=== PATIENT | female | born 1940 | race Caucasian/White ===

== ENCOUNTER 2020-09-03 22:51 | Inpatient (IN) | payer OTHER ==
[2020-09-03 23:53] LABS: Absolute Lymphocytes (CBC) 1.1 K/uL (0.7-4.9); Basophils % 0.4 % (0-1.3); Hematocrit 45.2 % (36.0-45.0); MPV 8.7 fL (7.6-11.3); RBC Red Blood Cell Count 5.17 M/uL (3.86-4.86)
[2020-09-03 23:56] LABS: Protime INR 1.09
[2020-09-04] MEDS ORDERED: NA CHLORIDE 0.9% 1,000 ML ONE (00:14)
[2020-09-04 00:27] LABS: ALT/SGPT 41 U/L (12-78); AST/SGOT 74 U/L (15-37); Albumin 3.3 g/dL (3.4-5.0); Alkaline Phosphatase 87 U/L (45-117); Amylase 39 U/L (25-115); BUN Blood Urea Nitrogen 12 mg/dL (7-18); Bicarbonate 26 mmol/L (21-32); Bilirubin Direct 0.5 mg/dL (0-0.2); Bilirubin Total 1.6 mg/dL (0.2-1.0); CKMB Creatine Kinase MB < 1.0 ng/mL (0.3-3.6); Creatine Phosphokinase 43 U/L (26-192); Digoxin Level < 0.10 ng/mL (0.80-2.00); Glucose Level 209 mg/dL (74-106); Lipase 141 U/L (73-393); Potassium 3.7 mmol/L (3.5-5.1); Sodium Level 137 mmol/L (136-145); Troponin (Emerg Dept Use Only) < 0.02 ng/mL (0.0-0.045)
[2020-09-04 00:54] LABS: Blood Morphology Comment NOT SEEN (NOT SEEN); Platelet Estimate ADEQ
--- NOTE | 2020-09-04 01:49 | EDPHYS ---
Physician Documentation [facility] Name: Kay Jin Age: 80 yrs Sex: Female : 1940 Arrival Date: 09/03/2020 Time: 22:56 Bed 14 Private MD: ED Physician Truman Kowalski HPI: 09/03 23:56 This 80 yrs old Female presents to ER via EMS with complaints of confused . ma2 23:56 called EMS stating his , the patient, is non verbal and seems confused. ma2 when ems arrived patietnt was having afib w rvr hr was 170 bpm, w normal bp, yet awake alert, she was given diltiasm and rate went down to 110. remained normotensive... in er patient is awake and alert, yet confused. she states "she does not know" what is wrong. has no complaint at this time . 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 - Social history:: Smoking status: Patient denies any tobacco usage or history of. Patient/guardian denies using alcohol, street drugs, IV drugs, tobacco products, Patient/guardian denies using The patient lives with family. - Family history:: not pertinent. ROS: 23:56 Constitutional: Negative for fever, chills, and weight loss. ma2 23:56 All other systems are negative. 23:56 Unable to obtain ROS due to altered mental status. ma2 Exam: 23:56 Constitutional: This is a well developed, well nourished patient who is awake, alert, ma2 and in no acute distress. Head/Face: Normocephalic, atraumatic. Eyes: Pupils equal round and reactive to light, extra-ocular motions intact. Lids and lashes normal. Conjunctiva and sclera are non-icteric and not injected. Cornea within normal limits. Periorbital areas with no swelling, redness, or edema. ENT: Nares patent. No nasal discharge, no septal abnormalities noted. Tympanic membranes are normal and external auditory canals are clear. Oropharynx with no redness, swelling, or masses, exudates, or evidence of obstruction, uvula midline. Mucous membranes moist. Neck: Trachea midline, no thyromegaly or masses palpated, and no cervical lymphadenopathy. Supple, full range of motion without nuchal rigidity, or vertebral point tenderness. No Meningismus. Chest/axilla: Normal chest wall appearance and motion. Nontender with no deformity. No lesions are appreciated. Respiratory: Lungs have equal breath sounds bilaterally, clear to auscultation and percussion. No rales, rhonchi or wheezes noted. No increased work of breathing, no retractions or nasal flaring. Abdomen/GI: Soft, non-tender, with normal bowel sounds. No distension or tympany. No guarding or rebound. No evidence of tenderness throughout. 23:56 MS/ Extremity: Pulses equal, no cyanosis. Neurovascular intact. Full, normal range of motion. 23:56 Cardiovascular: Rate: tachycardic, Rhythm: irregularly irregular, Pulses: no pulse deficits are appreciated, Edema: is not appreciated. 23:56 Neuro: Orientation: to person, place, situation, Not oriented to time, Mentation: appropriate for stated age, Cranial nerves: CN I not tested, extraocular movements are intact, Facial palsy and sensory deficits are absent. Speech is clear and appropriate. Motor: moves all fours, Sensation: Gait: not tested. Vital Signs: 23:00 BP 165 / 101; Pulse 114; Resp 16; Pulse Ox 94% ; sf 23:01 BP 176 / 120 (auto/); Pulse 128 MON; Resp 16 S; Temp 98.8(O); Pulse Ox 90% on R/A; sf 23:10 Pulse Ox 94% on R/A; sf 23:21 BP 166 / 94; sf 23:42 BP 185 / 98; Pulse 118; Resp 16; Pulse Ox 93% on R/A; sf 11 00:00 BP 177 / 111; Pulse 121; Resp 16; Pulse Ox 93% ; sf 00:30 BP 178 / 111; Pulse 121; Resp 16; Pulse Ox 95% ; sf 01:00 BP 168 / 127; Pulse 130; Resp 16; Pulse Ox 96% ; sf 01:30 BP 187 / 173; Pulse 121; Resp 16; Pulse Ox 95% ; sf 01:56 BP 166 / 113; Pulse 127; Resp 16; Pulse Ox 95% ; sf 02:00 BP 167 / 100; Pulse 109; Pulse Ox 94% ; sf 02:05 BP 169 / 97; Pulse 104; Pulse Ox 95% ; sf 02:10 BP 158 / 87; Pulse 102; Resp 14; Pulse Ox 93% ; Weight 95.25 kg (R); Height 5 ft. 7 in. sf (170.18 cm) (R); 02:15 BP 148 / 97; Pulse 99; Resp 16; Pulse Ox 94% ; sf 02:20 BP 148 / 95; Pulse 98; Resp 16; Pulse Ox 94% ; sf 02:30 BP 157 / 84; Pulse 99; Resp 16; Pulse Ox 95% ; sf 03:00 BP 172 / 105; Pulse 101; Resp 16; Pulse Ox 93% ; sf 02:10 Body Mass Index 32.89 (95.25 kg, 170.18 cm) NIH Stroke Scale Scores: 02:32 NIHSS Score: 2 [facility] MDM: 09/03 22:59 Patient medically screened. [facility] 23:56 Differential Diagnosis altered mental status, sepsis, likely afib with rvr and delirium [facility] . 09/04 01:47 Data reviewed: vital signs, nurses notes. Counseling: I had a detailed discussion with [facility] the patient and/or guardian regarding: the historical points, exam findings, and any diagnostic results supporting the discharge/admit diagnosis, the presence of at least one elevated blood pressure reading (>120/80) during this emergency department visit, the need for outpatient follow up. Response to treatment: the patient's symptoms have markedly improved after treatment. 09/03 23:02 Order name: C-Reactive Protein [facility] 09/03 23:02 Order name: Urine Culture [facility] 09/03 23:02 Order name: Amylase, Serum [facility] 09/03 23:02 Order name: Basic Metabolic Panel [facility] 09/03 23:02 Order name: Blood Culture Adult (2) [facility] 09/03 23:02 Order name: CBC with Diff; Complete Time: 00:55 [facility] 09/03 23:02 Order name: Ckmb; Complete Time: 00:54 [facility] 09/03 23:02 Order name: CPK; Complete Time: 00:54 [facility] 09/03 23:02 Order name: Lactate; Complete Time: 00:54 ar2 09/03 23:02 Order name: LFT's; Complete Time: 00:54 [facility] 09/03 23:02 Order name: Lipase; Complete Time: 00:54 ar2 09/03 23:02 Order name: Procalcitonin; Complete Time: 00:54 [facility] 09/03 23:02 Order name: Protime (+inr); Complete Time: 00:54 [facility] 09/03 23:02 Order name: Ptt, Activated; Complete Time: 00:54 [facility] 09/03 23:02 Order name: Troponin (emerg Dept Use Only); Complete Time: 00:54 [facility] 09/03 23:02 Order name: Urine Microscopic Only [facility] 09/03 23:02 Order name: C-Reactive Protein; Complete Time: 00:54 [facility] 09/03 23:02 Order name: Urine Culture [facility] 09/03 23:02 Order name: Amylase; Complete Time: 00:54 [facility] 09/03 23:02 Order name: Basic Metabolic Panel; Complete Time: 00:54 [facility] 09/03 23:02 Order name: Digoxin; Complete Time: 00:54 [facility] 09/03 23:58 Order name: Manual Differential; Complete Time: 00:55 [facility] 09/04 01:16 Order name: Urine Dipstick--Ancillary (enter results) 3 09/04 02:16 Order name: COVID-19 : Document "Date of Symptom Onset" if Symptomatic. 09/04 04:08 Order name: SARS-COV-2 RT PCR; Complete Time: 04:24 [facility] 09/04 06:08 Order name: Troponin I [facility] 09/04 06:10 Order name: T4 Free [facility] 09/04 06:10 Order name: Thyroid Stimulating Hormone [facility] 09/04 06:13 Order name: Hemoglobin A1c [facility] 09/04 10:02 Order name: Troponin I [facility] 09/03 23:02 Order name: Chest Single View XRAY [facility] 09/03 23:02 Order name: Cardiac monitoring; Complete Time: 23:18 [facility] 09/03 23:02 Order name: EKG - Nurse/Tech; Complete Time: 23:18 [facility] 09/03 23:02 Order name: IV Saline Lock - Large Bore; Complete Time: 23:18 [facility] 09/03 23:02 Order name: Labs collected and sent; Complete Time: 23:46 ar2 09/03 23:02 Order name: O2 Per Protocol; Complete Time: 23:18 ar2 09/03 23:02 Order name: O2 Sat Monitoring; Complete Time: 23:17 [facility] 09/03 23:02 Order name: Urine Dipstick-Ancillary (obtain specimen); Complete Time: 01:06 [facility] 09/03 23:02 Order name: CT Head Brain wo Cont ar2 09/04 00:03 Order name: Swallow Screen; Complete Time: 01:06 ar2 09/04 02:51 Order name: CONS Physician Consult [facility]IL 09/04 04:25 Order name: CT Neck Angio ar2 09/04 04:25 Order name: CT Head Angio ar2 Administered Medications: 00:00 Drug: NS 0.9% 1000 ml Route: IV; Rate: 125 ml/hr; Site: left forearm; sf 03:45 Follow up: IV Status: Infusion continued upon admission sf 01:41 Not Given (Physician Discretion): Diltiazem 30 mg PO once em 01:55 Drug: Rocephin 1 grams Route: IV; Rate: calculated rate; Site: right antecubital; sf 02:00 Follow up: IV Status: Completed infusion; IV Intake: 10ml sf 03:27 Follow up: Response: No adverse reaction sf 02:00 Drug: Cefepime 1 grams Route: IVPB; Rate: 200 ml/hr; Infused Over: 30 mins; Site: right sf antecubital; 02:30 Follow up: IV Status: Completed infusion sf 03:26 Follow up: Response: No adverse reaction sf 02:00 Drug: Metoprolol 5 mg Route: IVP; Site: left forearm; sf 02:05 Drug: Metoprolol 5 mg Route: IVP; Site: left forearm; sf 02:10 Drug: Metoprolol 5 mg Route: IVP; Site: left forearm; sf 03:27 Follow up: Response: No adverse reaction sf 02:56 Not Given (Physician Discretion): Diltiazem 5 mg/hr IV at calculated rate continuous; jb4 (standard dilution 125 mg diltiazem mixed in 100mL NS; final concentration 1mg/mL) 03:03 Drug: Metoprolol 50 mg Route: PO; jb4 03:27 Follow up: Response: No adverse reaction sf Disposition: 09/04/20 01:49 Hospitalization ordered by Truman Howard for Inpatient Admission. Preliminary diagnosis are Atrial fibrillation and flutter, Tachycardia, unspecified, Altered mental status, unspecified. - Bed requested for Telemetry/MedSurg (Inpatient). - Status is Inpatient Admission. jd3 - Condition is Stable. - Problem is new. - Symptoms are unchanged. NIH Stroke Scale - NIH Stroke Score Date: 09/04/2020 Time: 02:32 Total Score = 2 1a. Level of Consciousness (LOC) - 0(Alert) 1b. Level of Consciousness (LOC) (Year \\T\\ Age) - 1(One) 1c. LOC Commands (Open \\T\\ Closes Eyes/Excavator Operator) - 0(Both) 2. Best Gaze (Lateral Gaze Paresis) - 0(Normal) 3. Visual Field Loss - 0(No visual loss) 4. Facial Palsy - 0(Normal) 5a. Left Arm: Motor (10-second hold) - 0(No drift) 5b. Right Arm: Motor (10-second hold) - 0(No drift) 6a. Left Leg: Motor (5-second hold - always test supine) - 0(No drift) 6b. Right Leg: Motor (5-second hold - always test supine) - 0(No drift) 7. Limb Ataxia (finger/nose \\T\\ heel/gerard - test with eyes open) - 0(Absent) 8. Sensory Loss (pinprick arms/legs/face) - 0(Normal) 9. Best Language: Aphasia (description/naming/reading) - 0(No aphasia) 10. Dysarthria (speech clarity - read or repeat words) - 0(Normal) 11. Extinction and Inattention (visual/tactile/auditory/spatial/personal) - 1(Present) Initials: ma2 Signatures: Dispatcher [employer] Catrachita Diaz RN RN dw Roszak, Josh, PA PA jr8 Dory Peralta RN RN tl1 Anson Mitchell RN RN jb4 Kedar Ch RN RN jd3 Alzahri, Mohammad, MD MD ma2 Levi Ruiz RN RN sf Munoz, Edgar RN em Corrections: (The following items were deleted from the chart) 01:13 09/03 23:02 Accucheck ordered. ma2 sf 09/04 04:09 01:49 Hospitalization Ordered by Truman Howard MD for Inpatient Admission. tl1 Preliminary diagnosis is Atrial fibrillation and flutter; Tachycardia, unspecified; Altered mental status, unspecified. Bed requested for Telemetry/MedSurg (Inpatient). Status is Inpatient Admission. Condition is Stable. Problem is new. Symptoms are unchanged. ma2 09:56 04:09 09/04/2020 01:49 Hospitalization Ordered by Truman Howard MD for dw Inpatient Admission. Preliminary diagnosis is Atrial fibrillation and flutter; Tachycardia, unspecified; Altered mental status, unspecified. Bed requested for [facility] ER HOLD. Status is Inpatient Admission. Condition is Stable. Problem is new. Symptoms are unchanged. tl1 11:02 09:56 09/04/2020 01:49 Hospitalization Ordered by Truman Howard MD for jd3 Inpatient Admission. Preliminary diagnosis is Atrial fibrillation and flutter; Tachycardia, unspecified; Altered mental status, unspecified. Bed requested for Telemetry/MedSurg (Inpatient). Status is Inpatient Admission. Condition is Stable. Problem is new. Symptoms are unchanged. dw
--- NOTE | 2020-09-04 01:49 | ER ---
Nurse's Notes [facility] Name: Kay Jin Age: 80 yrs Sex: Female : 1940 Arrival Date: 09/03/2020 Time: 22:56 Bed 14 Private MD: Diagnosis: Atrial fibrillation and flutter;Tachycardia, unspecified;Altered mental status, unspecified Presentation: 09/03 23:01 Chief complaint: EMS states: EMS reports called EMS for bilateral leg weakness, sf concerned due to HX TIAs, showed A-Fib RVR on monitor with rate in the 160s, They gave 4mg Cardizem IVP, rate slowed to 120s. Coronavirus screen: Client denies travel out of the [place] in the last 14 days. At this time, the client does not indicate any symptoms associated with coronavirus-19. Ebola Screen: Patient negative for fever greater than or equal to 101.5 degrees Fahrenheit, and additional compatible Ebola Virus Disease symptoms Patient denies exposure to infectious person. Patient denies travel to an Ebola-affected area in the 21 days before illness onset. No symptoms or risks identified at this time. Initial Sepsis Screen: Does the patient meet any 2 criteria? Altered Mental Status. HR > 90 bpm. Yes Does the patient have a suspected source of infection? No. Patient's initial sepsis screen is negative. Risk Assessment: Do you want to hurt yourself or someone else? Patient reports no desire to harm self or others. Onset of symptoms was September 03, 2020. 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 - Social history:: Smoking status: Patient denies any tobacco usage or history of. Patient/guardian denies using alcohol, street drugs, IV drugs, tobacco products, Patient/guardian denies using The patient lives with family. - Family history:: not pertinent. Screenin:00 Abuse screen: Denies threats or abuse. Denies injuries from another. Nutritional sf screening: No deficits noted. Tuberculosis screening: No symptoms or risk factors identified. Never had TB. Possible symptoms: None Risk factors: None. Fall Risk None identified. No fall in past 12 months (0 pts). Secondary diagnosis (15 points) TIA, IV access (20 points). Ambulatory Aid- None/Bed Rest/Nurse Assist (0 pts). Gait- Weak (10 pts.). Mental Status- Overestimates/Forgets Limitations (15 pts.). Total Araujo Fall Scale indicates High Risk Score (45 or more points). Fall prevention measures have been instituted. Side Rails Up X 2 Placed Close to Nursing Station Frequent Obs/Assessments Occuring. 09/04 00:50 Patient has been NPO before screening. The patient is alert, able to follow commands. em The patient does not exhibit slurred or garbled speech The patient is not exhibiting difficulty speaking. The patient does not exhibit difficulty understanding words. The patient is able to swallow own secretions with no drooling or need for suction. Patient tolerated one teaspoon of water. No drooling, immediate coughing, gurgling, or clearing of the throat was noted. The patient tolerated 90mL of water. No drooling, immediate coughing, gurgling, or clearing of the throat was noted. The patient passed the bedside swallow screening. Oral medications may be given as ordered. Contact Physician for further diet orders. Provider notified of bedside swallow screening results: Truman Kowalski MD. Assessment: 09/03 23:00 General: Appears in no apparent distress. comfortable, well groomed, well developed, sf Behavior is calm, cooperative. Pain: Denies pain. Neuro: Level of Consciousness is awake, alert, obeys commands, confused, Oriented to person, Moves all extremities. Speech with expressive aphasia noted, Facial symmetry appears normal, Pupils are PERRLA. Cardiovascular: Denies chest pain, shortness of breath, Patient's skin is warm and dry. Rhythm is atrial fibrillation with rapid ventricular response With PVC's. Respiratory: No deficits noted. Airway is patent Respiratory effort is even, unlabored, Respiratory pattern is regular, symmetrical. 23:10 Reassessment: spoke with Sunil () POC [phone], states his was having em some generalized weakness and difficulty with her speech around 4PM, noticed it was not getting any better and called EMS, was concerned that she was having another TIA. 09/04 01:21 Reassessment: Patient appears in no apparent distress at this time. No changes from sf previously documented assessment. Patient and/or family updated on plan of care and expected duration. Pain level reassessed. 03:30 Reassessment: Patient appears in no apparent distress at this time. Patient and/or sf family updated on plan of care and expected duration. Pain level reassessed. HR slower, still having confusion, denies wants/needs. 10:43 Reassessment: Gave report to MARTÍN Epstein. Information from the SBAR was given, all rb3 questions asked and answered. Vital Signs: 09/03 23:00 BP 165 / 101; Pulse 114; Resp 16; Pulse Ox 94% ; sf 23:01 BP 176 / 120 (auto/); Pulse 128 MON; Resp 16 S; Temp 98.8(O); Pulse Ox 90% on R/A; sf 23:10 Pulse Ox 94% on R/A; sf 23:21 BP 166 / 94; sf 23:42 BP 185 / 98; Pulse 118; Resp 16; Pulse Ox 93% on R/A; sf 09/04 00:00 BP 177 / 111; Pulse 121; Resp 16; Pulse Ox 93% ; sf 00:30 BP 178 / 111; Pulse 121; Resp 16; Pulse Ox 95% ; sf 01:00 BP 168 / 127; Pulse 130; Resp 16; Pulse Ox 96% ; sf 01:30 BP 187 / 173; Pulse 121; Resp 16; Pulse Ox 95% ; sf 01:56 BP 166 / 113; Pulse 127; Resp 16; Pulse Ox 95% ; sf 02:00 BP 167 / 100; Pulse 109; Pulse Ox 94% ; sf 02:05 BP 169 / 97; Pulse 104; Pulse Ox 95% ; sf 02:10 BP 158 / 87; Pulse 102; Resp 14; Pulse Ox 93% ; Weight 95.25 kg (R); Height 5 ft. 7 in. sf (170.18 cm) (R); 02:15 BP 148 / 97; Pulse 99; Resp 16; Pulse Ox 94% ; sf 02:20 BP 148 / 95; Pulse 98; Resp 16; Pulse Ox 94% ; sf 02:30 BP 157 / 84; Pulse 99; Resp 16; Pulse Ox 95% ; sf 03:00 BP 172 / 105; Pulse 101; Resp 16; Pulse Ox 93% ; sf 02:10 Body Mass Index 32.89 (95.25 kg, 170.18 cm) sf Vitals: 01:00 Cardiac Rhythm Assessment Atrial fibrillation W/rapid ventricular response W/PVC's. sf 02:15 Cardiac Rhythm Assessment Atrial fibrillation. NIH Stroke Scale Scores: 02:32 NIHSS Score: 2 [facility] ED Course: 09/03 22:52 EKG done, by ED staff, reviewed by Truman Kowalski MD. sf 22:56 Patient arrived in ED. em 22:59 Truman Kowalski MD is Attending Physician. [facility] 23:01 Levi Ruiz, RN is Primary Nurse. sf 23:04 Triage completed. sf 23:05 Fall risk band placed. Placed in gown. Bed in low position. Call light in reach. Side sf rails up X2. equipment monitor phototypesetting on. Pulse ox on. NIBP on. Door closed. Noise minimized. Lights dimmed. Warm blanket given. Verbal reassurance given. 23:08 Arm band placed on left wrist. EKG completed in triage. Results shown to MD. sf 23:10 Maintain EMS IV. Dressing intact. Good blood return noted. Site clean \T\ dry. Gauge \T\ sf site: 22GA right AC. 23:17 CT Head Brain wo Cont Sent. sf 23:30 Initial lab(s) drawn, by mt, sent to lab. First set of blood cultures drawn by me. sf Inserted saline lock: 20 gauge in left forearm, using aseptic technique. Blood collected. 23:33 CT Head Brain wo Cont In Process Unspecified. EDMS 23:48 X-ray(s) taken. sf 23:56 Chest Single View XRAY Sent. sf 02 00:49 Chest Single View XRAY In Process Unspecified. EDMS 01:00 Straight cath inserted, using sterile technique, 16 Fr. Specimen obtained. Returned em clear yellow urine. Patient tolerated well. 01:12 C-Reactive Protein Sent. sf 01:12 Urine Culture Sent. sf 01:12 Amylase, Serum Sent. sf 01:12 Basic Metabolic Panel Sent. sf 01:48 Truman Howard MD is Hospitalizing Provider. ma2 03:44 Report given to Lilia Douglas RN. sf 03:45 No provider procedures requiring assistance completed. Patient admitted, IV remains in sf place. Administered Medications: 00:00 Drug: NS 0.9% 1000 ml Route: IV; Rate: 125 ml/hr; Site: left forearm; sf 03:45 Follow up: IV Status: Infusion continued upon admission sf 01:41 Not Given (Physician Discretion): Diltiazem 30 mg PO once em 01:55 Drug: Rocephin 1 grams Route: IV; Rate: calculated rate; Site: right antecubital; sf 02:00 Follow up: IV Status: Completed infusion; IV Intake: 10ml sf 03:27 Follow up: Response: No adverse reaction sf 02:00 Drug: Cefepime 1 grams Route: IVPB; Rate: 200 ml/hr; Infused Over: 30 mins; Site: right sf antecubital; 02:30 Follow up: IV Status: Completed infusion sf 03:26 Follow up: Response: No adverse reaction sf 02:00 Drug: Metoprolol 5 mg Route: IVP; Site: left forearm; sf 02:05 Drug: Metoprolol 5 mg Route: IVP; Site: left forearm; sf 02:10 Drug: Metoprolol 5 mg Route: IVP; Site: left forearm; sf 03:27 Follow up: Response: No adverse reaction sf 02:56 Not Given (Physician Discretion): Diltiazem 5 mg/hr IV at calculated rate continuous; jb4 (standard dilution 125 mg diltiazem mixed in 100mL NS; final concentration 1mg/mL) 03:03 Drug: Metoprolol 50 mg Route: PO; jb4 03:27 Follow up: Response: No adverse reaction sf Intake: 02:00 IV: 10ml; Total: 10ml. Outcome: 01:49 Decision to Hospitalize by Provider. ma2 03:44 Admitted to ER Hold. Please see [facility] for further documentation. sf 03:44 Condition: stable 11:02 Patient left the ED. jd3 NIH Stroke Scale - NIH Stroke Score Date: 09/04/2020 Time: 02:32 Total Score = 2 1a. Level of Consciousness (LOC) - 0(Alert) 1b. Level of Consciousness (LOC) (Year \T\ Age) - 1(One) 1c. LOC Commands (Open \T\ Closes Eyes/Chronic Specialist) - 0(Both) 2. Best Gaze (Lateral Gaze Paresis) - 0(Normal) 3. Visual Field Loss - 0(No visual loss) 4. Facial Palsy - 0(Normal) 5a. Left Arm: Motor (10-second hold) - 0(No drift) 5b. Right Arm: Motor (10-second hold) - 0(No drift) 6a. Left Leg: Motor (5-second hold - always test supine) - 0(No drift) 6b. Right Leg: Motor (5-second hold - always test supine) - 0(No drift) 7. Limb Ataxia (finger/nose \T\ heel/gerard - test with eyes open) - 0(Absent) 8. Sensory Loss (pinprick arms/legs/face) - 0(Normal) 9. Best Language: Aphasia (description/naming/reading) - 0(No aphasia) 10. Dysarthria (speech clarity - read or repeat words) - 0(Normal) 11. Extinction and Inattention (visual/tactile/auditory/spatial/personal) - 1(Present) Initials: ma2 Signatures: Dispatcher [employer] EDKorey Narayan RN RN Anson Estrada RN RN jb4 Kedar Ch RN RN Truman Martinez MD MD ma2 Teresa Reyes, RN RN rb3 Levi Ruiz RN RN sf Corrections: (The following items were deleted from the chart) 09/03 23:55 23:00 Cardiovascular: Denies chest pain, shortness of breath, Patient's skin is sf warm and dry. Rhythm is atrial fibrillation with rapid ventricular response sf
[2020-09-04] MEDS ORDERED: dilTIAZem HCL 25 MG/5 ML VIAL IV ONE ×3 (01:51→02:06)
[2020-09-04] MEDS ORDERED: NA CHLORIDE 0.9% 100 ML ONE (01:51)
[2020-09-04] MEDS ORDERED: CEFEPIME/SWI 1gm 10 ML ONE (01:52)
[2020-09-04] MEDS ORDERED: CEFTRIAXONE/SWI 1gm 1 GM/10 ML SYR ONE (01:52)
[2020-09-04] MEDS ORDERED: METOPROLOL TARTRATE 5 MG/5 ML INJ IV ONE ×2 (02:08→02:23)
[2020-09-04] MEDS ORDERED: METOPROLOL TAR 50 MG TAB ONE (03:15)
--- NOTE | 2020-09-04 03:34 | P.HP ---
Certification for Inpatient Patient admitted to: Inpatient With expected LOS: >2 Midnights Patient will require the following post-hospital care: None Practitioner: I am a practitioner with admitting privileges, knowledge of patient current condition, hospital course, and medical plan of care. Services: Services provided to patient in accordance with Admission requirements found in Title 42 Section 412.3 of the Code of Federal Regulations <Jona Ross - Last Filed: 09/04/20 03:29> Patient History Date of Service: 09/04/20 Reason for admission: Atrial Fib with RVR, AMS History of Present Illness: This is a 80-year-old female that was brought to the emergency room tonight after EMS was called out by has been for confusion that has started around 4:00 p.m. tonight and has continued on. EMS stated once it up to the monitor they noticed that she was in atrial fibrillation with rapid ventricular rate. Patient was given Cardizem en route to the hospital with only mild rate control. Patient was still in the 130 still 140s upon arrival. Patient was worked up in the emergency room for altered mental status and atrial fibrillation. Patient was given rounds of Lopressor with excellent rate control at this time. Patient had an NIH of 1. Patient had a CT scan done without acute findings in the emergency room. Patient did have mild elevation of white cell count of 15.4 with a mild pro calibration of 0.06. Medicine consult at that time for further evaluation admission. Home medications list reviewed: Yes - Social History Smoking Status: Never smoker Smoking therapy provided: No Alcohol use: No CD- Drugs: No Caffeine use: No Place of Residence: Home <VandanaJona - Last Filed: 09/04/20 03:29> Date of Service: 09/04/20 - Family History Mother -: Heart disease, Cancer Father -: Heart disease <Truman Howard - Last Filed: 10/02/20 14:00> Review of Systems General: Unremarkable Eyes: Unremarkable ENT: Unremarkable Respiratory: Unremarkable Cardiovascular: Palpitations Gastrointestinal: Unremarkable Genitourinary: Unremarkable Musculoskeletal: Unremarkable Integumentary: Unremarkable Neurological: As per HPI Lymphatics: Unremarkable <MariJona mckeon - Last Filed: 09/04/20 03:29> Physical Examination - Vital Signs Temperature: 98.8 F Blood Pressure: 149/64 Pulse: 86 (Irregularly irregular) Respirations: 18 Pulse Ox (%): 95 (Room air) - Physical Exam General: Alert, In no apparent distress, Oriented x2, Confused HEENT: PERRLA, Mucous membr. moist/pink, EOMI Neck: Supple, 2+ carotid pulse no bruit, JVD not distended, No Thyromegaly Respiratory: Clear to auscultation bilaterally, Normal air movement Cardiovascular: No edema, Normal pulses, No gallops, No rubs, No murmurs, Irregular heart rate/rhythm Capillary refill: <2 Seconds Gastrointestinal: Normal bowel sounds, Soft and benign, Non-distended, No ascites, No tenderness, No masses, No rebound, No guarding Musculoskeletal: No clubbing, No swelling, No contractures, No erythema, No tenderness, No warmth Integumentary: No rashes, No breakdown, No significant lesion, No ten derness/swelling, No erythema, No warmth, No cyanosis Neurological: Normal speech, Normal strength at 5/5 x4 extr, Normal tone, Sensation intact, Cranial nerves 3-12 intact, Normal affect Lymphatics: No axilla or inguinal lymphadenopathy - Studies Laboratory Data (last 24 hrs) 09/03/20 23:30: PT 12.6 H, INR 1.09, APTT 26.3 09/03/20 23:30: WBC 15.40 H, Hgb 14.3, Hct 45.2 H, Plt Count 239 09/03/20 23:30: Sodium 137, Potassium 3.7, BUN 12, Creatinine 1.29, Glucose 209 H, Total Bilirubin 1.6 H, AST 74 H, ALT 41, Alkaline Phosphatase 87, Amylase 39, Lipase 141 <Jona Ross - Last Filed: 09/04/20 03:29> Assessment and Plan - Problems (Diagnosis) (1) Hypertension Status: Chronic Qualifiers: Hypertension type: essential hypertension Qualified Code(s): I10 - Essential (primary) hypertension (2) Atrial fibrillation with rapid ventricular response Status: Acute (3) Altered mental status Status: Acute Qualifiers: Altered mental status type: disorientation Qualified Code(s): R41.0 - Disorientation, unspecified (4) History of TIA (transient ischemic attack) Status: Resolved (5) Hyperglycemia Status: Acute - Plan 1. Patient will be placed in telemetry unit for further monitoring of vital signs and neurologic evaluation 2. Patient will continue to be on metoprolol 50 mg twice daily for rate control of atrial fibrillation 3. Back on her Pradaxa for anticoagulation secondary to atrial fibrillation 4. Cardiology has been consulted for the atrial fibrillation with a rapid ventricular response 5. Neurology has been consulted for altered mental status with suspicion of TIA versus CVA. MRI stroke protocol ordered for tomorrow 6. A1c is being checked. No medical history shown on previous documentation of hyperglycemia and or diabetes. 7. We will continue to monitor electrolytes, vital signs and other lab values. Discharge Plan: Home Plan to discharge in: 48 Hours - Advance Directives Does patient have a Living Will: No Does patient have a Durable POA for Healthcare: No - Code Status/Comfort Care Code Status Assessed: No Critical Care: No Time Spent Managing Pts Care (In Minutes): 80 <Jona Ross - Last Filed: 09/04/20 03:29> Date of Service: 09/04/20 Patient clinically doing well. Rate is controlled. Continue with anti coagulation. At this time, patient is stable for discharge home. <Truman Howard - Last Filed: 10/02/20 14:00>
[2020-09-04 03:41] VITALS: BMI 32.8
[2020-09-04] MEDS ORDERED: ONDANSETRON 4 MG/2 ML VIAL IV PRN (04:27)
[2020-09-04 06:10] LABS: Thyroid Stimulating Hormone 0.741 uIU/mL (0.360-3.740)
--- NOTE | 2020-09-04 08:47 | RAD REPORT ---
EXAM DESCRIPTION: RAD - Chest Single View - 09/04/2020 12:49 am CLINICAL HISTORY: CHEST PAIN Chest pain. COMPARISON: No comparisons FINDINGS: Portable technique limits examination quality. Mild interstitial pulmonary edema seen. The heart is moderately enlarged in size. No displaced fractu res.Dual lead pacer device is present. IMPRESSION: Mild CHF.
[2020-09-04] MEDS: DABIGATRAN 75 MG CAP PO SCH ×2 (09:00→20:21)
[2020-09-04] MEDS: ASPIRIN EC 81 MG TAB PO SCH (09:00)
[2020-09-04] MEDS ORDERED: ASPIRIN EC 81 MG TAB PO ONE (09:23)
[2020-09-04 11:33] VITALS: O2SAT 96
--- NOTE | 2020-09-04 12:42 | RAD REPORT ---
EXAM DESCRIPTION: CT Head Without Intravenous Contrast CLINICAL HISTORY: The patient is 80 years old and is Female; CONFUSED TECHNIQUE: Axial computed tomography images of the head/brain without intravenous contrast. Sagitt al and coronal reformatted images were created and reviewed. This CT exam was performed using one o r more of the following dose reduction techniques: automated exposure control, adjustment of the mA and/or kV according to patient size, and/or use of iterative reconstruction technique. COMPARISON: No relevant prior studies available. FINDINGS: BRAIN: There is diffuse cerebral atrophy present, consistent with this patient's age. There is patchy hypoattenuation of the deep white matter which is non-specific, but most likely owing to chronic small vessel ischemic change in a patient of this age group. No intracranial hemorrhage , mass effect, or midline shift is seen. There are no extra-axial fluid collections. Encephalomalac ia within the left parietal lobe is present. VENTRICLES: Unremarkable. No ventriculomegaly. BONES/JOINTS: No acute fracture. SOFT TISSUES: Unremarkable. VASCULATURE: Atherosclerosis of intracranial vasculature is present. SINUSES: Chronic opacification of the right sphenoid sinus is present. MASTOID AIR CELLS: Unremarkable as visualized. No mastoid effusion. ORBITS: The left globe is diffusely increased in attenuation with postsurgical change present. IMPRESSION: Age-related atrophy and chronic white matter ischemic changes, with no evidence of an ac [place] intracranial abnormality. Electronically signed by: Merlyn Mata MD 09/03/2020 11:37 PM FINANCE TEACHER Due to temporary technical issues with the PACS/Fluency reporting system, reports are being signed by the in house radiologists without review as a courtesy to insure prompt reporting. The interpreting radiologist is fully responsible for the content of the report.
--- NOTE | 2020-09-04 13:04 | RAD REPORT ---
EXAM DESCRIPTION: CTA neck with contrast 09/04/2020 at 4: 55 AM CLINICAL HISTORY: Stroke , transient ischemic attack, hypertension, atrial fibrillation COMPARISON: None. TECHNIQUE: Neck CTA axial images acquired after IV contrast. Coronal and sagittal CTA MIPs and MPRs created. 3D volume rendered images created. Exam performed according to departmental dose-optimizatio n program which includes automated exposure control, adjustment of mA and/or kV according to patient size, and/or use of iterative reconstruction technique. FINDINGS: Limited evaluation due to the relatively thick 2 mm axial images provided. Limited exam due to relatively suboptimal contrast opacification of neck arteries. Right vertebral artery proximal aspect (V1 segment) shows moderate calcified atherosclerotic plaque a nd poor visualization of contrast opacification. Poor visualization of contrast opacification in proximal left vertebral artery or V1 segment. Bilateral carotid artery bifurcations show moderate calcified atherosclerotic plaques causing at leas t moderate stenosis of bilateral internal carotid arteries' proximal aspects (at least 30% diameter s tenosis by NASCET criteria). Moderate cervical spine degenerative disease. Osteopenia. IMPRESSION: Limited evaluation due to the relatively thick 2 mm axial images provided for a CTA neck exam. Limited exam due to relatively suboptimal contrast opacification of neck arteries (likely due to subo ptimal contrast bolus timing). Right vertebral artery proximal aspect (V1 segment) shows moderate calcified atherosclerotic plaque a nd poor visualization of contrast opacification. Poor visualization of contrast opacification in proximal left vertebral artery or V1 segment. Bilateral carotid artery bifurcations show moderate calcified atherosclerotic plaques causing at leas t moderate stenosis of bilateral internal carotid arteries' proximal aspects (at least 30% diameter s tenosis by NASCET criteria). Repeat exam recommended when patient is able. Electronically signed by: Yovanny Brock MD 09/04/2020 6:46 AM UNIT TRUST MANAGER Due to temporary technical issues with the PACS/Fluency reporting system, reports are being signed by the in house radiologists without review as a courtesy to insure prompt reporting. The interpreting radiologist is fully responsible for the content of the report.
--- NOTE | 2020-09-04 13:12 | RAD REPORT ---
EXAM DESCRIPTION: CTA head with contrast CLINICAL HISTORY: Aphasia, transient ischemic attack, hypertension, atrial fibrillation, bilateral l eg weakness COMPARISON: CT head without contrast 09/03/2020 at 11:10 PM TECHNIQUE: Head CTA axial images acquired with IV contrast. Coronal and sagittal CTA MIPs and MPRs c reated. Exam performed according to departmental dose-optimization program which includes automated e xposure control, adjustment of mA and/or kV according to patient size, and/or use of iterative recons truction technique. FINDINGS: Limited evaluation due to relatively decreased contrast opacification of major intracrania l arteries. Poor visualization of portions of intracranial right vertebral artery. Revisualization of flow in left P1 segment. Poor visualization of portions of both posterior cerebral artery distal aspect. Intracranial left alverto tebral artery shows marked calcified atherosclerotic plaques. Mild calcified atherosclerotic plaque of basilar artery. Right and left internal carotid arteries' cavernous segments shows moderate calcified atherosclerotic plaques causing mild stenosis (about 10% diameter stenosis). Flow visualized in both intracranial vertebral, both middle cerebral, and both anterior cerebral camille ruy. Hyperdense left globe. Left scleral banding. IMPRESSION: Limited evaluation due to relatively decreased contrast opacification of major intracran ial arteries; perhaps related to suboptimal contrast bolus timing. Poor visualization of portions of intracranial right vertebral artery. Poor visualization of flow in left P1 segment. Poor visualization of portions of both posterior cerebral arteries distal aspects. Intracranial left vertebral artery shows marked long segment calcified atherosclerotic plaques. Mild calcified atherosclerotic plaque of basilar artery. Right and left internal carotid arteries' cavernous segments shows moderate calcified atherosclerotic plaques. Flow visualized in both intracranial vertebral, both middle cerebral, and both anterior cerebral camille ruy. No CT evidence of large intracranial arterial occlusion, aneurysm, or AVM. Electronically signed by: Yovanny Brock MD 09/04/2020 6:28 AM LITIGATION EXAMINER Due to temporary technical issues with the PACS/Fluency reporting system, reports are being signed by the in house radiologists without review as a courtesy to insure prompt reporting. The interpreting radiologist is fully responsible for the content of the report.
[2020-09-04] MEDS: METOPROLOL TAR 50 MG TAB PO SCH (19:07)
--- NOTE | 2020-09-04 19:07 | CON ---
Date of Consultation: 09/04/2020 Reason For Consultation: Atrial fibrillation with RVR. History Of Present Illness: A 80-year-old female with history of atrial fibrillation, hypertension, who presented to the emergency room with altered mental condition and was found to have atrial fibril lation with rapid ventricular response. She was given Cardizem. Heart rate went down all that from the 140s range and apparently she converted to sinus rhythm overnight and currently is in sinus rhyth m, doing well. Does not have any chest pain, shortness of breath, and her mental status completely c leared. Past Medical History: As outlined above in HPI. Medications: Refer to reconciliation sheet for detailed list. Allergies: NO KNOWN DRUG ALLERGIES. Family History: No premature coronary artery disease or cancer. Social History: Does not smoke or drink. Does not use any drugs. Review of Systems: All systems reviewed and they were negative except for what mentioned in the HPI. Physical Examination: Vital Signs: Temperature is 98.0, pulse 76, breathing at 18, blood pressure is 177/96, saturating 95 % on room air. General: Pleasant elderly female, in no apparent distress. Head and Neck: Pupils are equal, reactive to light. Intact eye movements. No JVD. No cervical lym phadenopathy. Neck: Supple. Thyroid is not enlarged. Lungs: Clear to auscultation bilaterally. No rhonchi, rales, or crackles. No accessory muscle use. Heart: Regular rate and rhythm. No extra sounds. Abdomen: Soft, nontender. Bowel sounds positive. No organomegaly. No masses or hernia. No rigidi ty or rebound. Extremities: No edema, clubbing, cyanosis. Intact pulses. Skin: No rashes. Neurologic: Alert, awake, oriented x3. No acute focal deficits appreciated. Investigations: TSH is 0.74, BUN 12, creatinine 1.2. Assessment And Plan: 1.Atrial fibrillation with rapid ventricular response, converted to sinus rhythm. Recommend to incr ease the metoprolol to 100 mg twice a day. Continue Pradaxa for stroke prevention as the patient's C HADS-VASc score is elevated. If there is a risk for bleeding or risk for falling, then left atrial a ppendage closure is recommended. From Cardiology standpoint patient can be released home and follow up with me in the office in 4 weeks. SR/MODL Voice ID: [id number] Report ID: [id number]
[2020-09-05] MEDS: METOPROLOL TAR 50 MG TAB PO SCH (05:29)
[2020-09-05 05:54] LABS: Absolute Lymphocytes (CBC) 1.9 K/uL (0.7-4.9); Basophils % 0.8 % (0-1.3); Lymphocytes % 16.5 % (15.3-44.8); MPV 8.7 fL (7.6-11.3); RBC Red Blood Cell Count 4.78 M/uL (3.86-4.86)
[2020-09-05 06:04] LABS: Potassium 3.8 mmol/L (3.5-5.1)
[2020-09-05] MEDS: ASPIRIN EC 81 MG TAB PO SCH (09:30)
[2020-09-05] MEDS: DABIGATRAN 75 MG CAP PO SCH (09:30)
[2020-09-05 12:40] VITALS: TEMP 98.6
[2020-09-05] MEDS ORDERED: HYDRALAZINE HCL 20 MG/ML VIAL IV ONE (16:15)
[2020-09-05] MEDS ORDERED: AMLODIPINE 5 MG TAB PO ONE (17:00)
[2020-09-05] MEDS ORDERED: LOSARTAN POTASSIUM 50 MG TABLET PO ONE (17:00)
[2020-09-05 17:42] VITALS: BP 135/96
[2020-09-05] MEDS ORDERED: METOPROLOL TAR 50 MG TAB PO SCH (18:00)
--- NOTE | 2020-09-05 18:28 | CON ---
Reason For Consultation: Consultation called because of possible stroke. History Of Present Illness: Ms. Jin is a 80-year-old patient with atrial fibrillation with rapid ventricular response and history of stroke, but she could not tell the side that was impacted along w ith history of transient ischemic attack, who comes in [facility] reporting "my heart is rina ting too fast." She came to [facility] on the and was apparently confused as well arou nd 4 p.m. along with a rapid heart rate, and the patient was seen by EMS and cardiac monitoring revea led the atrial fibrillation with rapid ventricular response. She was given Cardizem, which achieved only mild rate control, still in the 140s to 130s, and she was somewhat disoriented in the emergency room. She was treated with Lopressor, which did achieve good rate control. Her NIH stroke evaluatio n was 1 for mild confusion. Head CT scan done in emergency room showed no acute ischemic or hemorrha gic changes. The study did show age related atrophy of the white matter, but no evidence of acute is chemic or hemorrhagic finding. Her blood work revealed an elevated white blood cell count of 15,400 consistent with her mild systemic infection. Neutrophils were 85.3. Her electrolyte panel revealed elevated creatinine slightly, glucose in the low 200s. Liver function study shows elevated AST. Her procalcitonin was elevated at 0.06, but lactic acid was normal at 1.4. Hemoglobin A1c was eventuall y 7.4, consistent with her diabetes mellitus. Since her admission, she has had a CT angiogram of the head, which was somewhat limited due to decreased contrast, opacification of the major intracranial arteries as felt due to suboptimal contrast bolus. However, the right and left internal carotid camille ruy did show moderate calcified arthrosclerosis. The intracranial left vertebral artery showed jose ed long segment calcified arthrosclerotic plaque and there was mild arthrosclerotic plaque in the bas ilar artery. Other small vessels were not visualized well. The patient reports her symptoms have somewhat improved in terms of orientation and confusion. Past Medical History: Positive as indicated for atrial fibrillation with rapid ventricular response, diabetes mellitus with poor control. Social History: No alcohol, tobacco, or IV drug use. Family History: Noncontributory. Allergies: NO KNOWN DRUG ALLERGIES. Current Medications: Aspirin 81 mg daily, Pradaxa 75 mg twice daily, Lopressor 50 mg twice daily, Zo tasneem as needed. Review of Systems: Aside from mentioned above, she denies any recent fevers or chills, nausea, vomiting, myalgias, arthr algias, rash, headache, weight change, psychiatric complaints, gastrointestinal or genitourinary issu es. Physical Examination: Vital Signs: Blood pressure range 179 up to 206/84 to 108, pulse 85 to 98, temperature 98.6, oxygen saturation 96%, respiratory rate 18. General: Ms. Jin is resting in bed. She is pleasant, smile. HEENT: She is normocephalic, atraumatic. Sclerae anicteric. Oropharynx is moist and pink. Neck: Supple. Chest: Clear. Heart: Irregularly irregular. Extremities: Show no clubbing, cyanosis, or edema. The patient did say she actually falls about onc e a week, typically to the left side and believes it is from her chronic stroke. She denies any inju ruy with the falls. Neurologic: She is alert and oriented to situation and person. Follows all commands without difficu lty. Her cranial nerves show no obvious deficits on 2 through 12. Motor examination, she has some s ubtle weakness in the left compared to the right upper extremity and in the left lower, right upper e xtremity, 4+ in the left lower extremity, 5- in left upper extremity, in the right side 5/5. Sensati on is intact in the right and left upper and lower extremities. Coordination is intact in upper and lower extremities. Reflexes are somewhat increased in the left compared to right. Otherwise are sym metric. Gait, she will be ambulated with gait belt and physical therapist. Assessment: Ms. Jin is a 80-year-old patient with possible chronic stroke impacting her left uppe r and lower extremity with mild weakness and incoordination. She has no sensory deficit there. She has atrial fibrillation with rapid ventricular response. There is a big risk factor for stroke. She has hypertension, diabetes mellitus, and dyslipidemia. Plan: Aggressive management of dyslipidemia, hypertension, and diabetes mellitus with mild permissiv e hypertension until stroke can be ruled out, which may be done with a repeat head CT scan, which wou ld be compared and if found negative, it is highly unlikely she has had any new stroke and stroke is chronic only. Otherwise, continue physical and occupational therapy along with speech therapy as nee ded. She may be evaluated for the level of therapy that may be appropriate, which appears to be outp atient physical therapy at this point given no evidence of any new stroke, but the atrial fibrillatio n and possible infection, which may be urinary tract may be contributing to the transient confusion a nd worsening coordination and weakness on the left side. LB/MODL Voice ID: [id number] Report ID: [id number]
[2020-09-05] MEDS ORDERED: LOSARTAN POTASSIUM 50 MG TABLET PO SCH (21:00)
[2020-09-06] MEDS ORDERED: AMLODIPINE 10 MG TAB PO SCH (09:00)
--- NOTE | 2020-10-02 14:04 | P.DS ---
Discharge Date: 09/05/20 Disposition: ROUTINE DISCHARGE Discharge Condition: GOOD Reason for Admission: Atrial Fib with RVR, AMS Consultations: Cardiology Brief History of Present Illness: Patient is a 80-year-old female came to the hospital with atrial fibrillation with rapid ventricular response. Patient was started on medication for rate control on anti coagulation. Patient also has some weakness on the left side. It appeared he may have a CVA. Patient is admitted to the hospital for further evaluation. Hospital Course: Patient's rate was controlled. Patient was started on anti coagulation. Patient is clinically doing well. Patient was seen by Neurology. At this time, patient is stable for discharge with outpatient follow-up with Neurology and Cardiology. Patient will need to continue with statin therapy. Patient will need to continue with anti coagulation. Return to the ER if symptoms worsen. Vital Signs/Physical Exam: Temp Pulse Resp BP Pulse Ox 98.6 F 104 H 18 135/96 H 97 09/05/20 16:00 09/05/20 17:00 09/05/20 16:00 09/05/20 17:41 09/05/20 16:00 General: Alert, In no apparent distress, Oriented x3 Laboratory Data at Discharge: WBC 11.50 K/uL (4.3-10.9) H D 09/05/20 05:32 Hgb 13.5 g/dL (12.0-15.0) 09/05/20 05:32 Hct 41.0 % (36.0-45.0) 09/05/20 05:32 Plt Count 170 K/uL (152-406) D 09/05/20 05:32 PT 12.6 SECONDS (9.5-12.5) H 09/03/20 23:30 INR 1.09 09/03/20 23:30 APTT 26.3 SECONDS (24.3-36.9) 09/03/20 23:30 Sodium 141 mmol/L (136-145) 09/05/20 05:32 Potassium 3.8 mmol/L (3.5-5.1) 09/05/20 05:32 BUN 12 mg/dL (7-18) 09/05/20 05:32 Creatinine 1.34 mg/dL (0.55-1.3) H 09/05/20 05:32 Glucose 156 mg/dL (74-106) H 09/05/20 05:32 Total Bilirubin 1.6 mg/dL (0.2-1.0) H 09/03/20 23:30 AST 74 U/L (15-37) H 09/03/20 23:30 ALT 41 U/L (12-78) 09/03/20 23:30 Alkaline Phosphatase 87 U/L (45-117) 09/03/20 23:30 Troponin I < 0.02 ng/mL (0.0-0.045) 09/04/20 09:18 Amylase 39 U/L (25-115) 09/03/20 23:30 Lipase 141 U/L (73-393) 09/03/20 23:30 Home Medications: Atropine 1% Opth Michelle [Atropine 1% Opth Michelle*] 1 gtt LEFT EYE QIDP PRN 09/04/20 Dabigatran Etexilate Mesylate [Pradaxa] 75 mg PO BID 09/04/20 Metoprolol Tartrate [Lopressor] 100 mg PO BID 09/04/20 Prednisol Acet 1% Opth [Pred Forte 1%*] 1 gtt LEFT EYE Q2HP PRN 09/04/20 Valsartan/Hydrochlorothiazide [Valsartan-Hctz 160-12.5 mg Tab] 1 tab PO DAILY 09/04/20 Amlodipine [Norvasc*] 10 mg PO DAILY #30 tab 09/05/20 Dabigatran Etexilate Mesylate [Pradaxa*] 75 mg PO BID #60 cap 09/05/20 Furosemide [Lasix] 20 mg PO DAILY PRN #15 09/05/20 Losartan Potassium [Cozaar*] 50 mg PO BID #60 tablet 09/05/20 New Medications: Losartan Potassium [Cozaar*] 50 mg PO BID #60 tablet Furosemide [Lasix] 20 mg PO DAILY PRN #15 PRN Reason: EDEMA Amlodipine [Norvasc*] 10 mg PO DAILY #30 tab Dabigatran Etexilate Mesylate [Pradaxa*] 75 mg PO BID #60 cap Physician Discharge Instructions: OK TO DC IV AND DC HOME FOLLOW-UP WITH PRIMARY CARE PROVIDER IN 1-2 WEEKS FOLLOW-UP WITH CARDIOLOGY IN 1-2 WEEKS FOLLOW-UP WITH Neurology IN 1-2 WEEKS RETURN TO THE ER IF symptoms worsen CALL or TEXT DR. HURTADO AT [phone] IF ANY QUESTIONS REGARDING HOSPITAL STAY. PLEASE CALL THE FLOOR AT [phone] IF ANY MEDICATION OR NURSING QUESTIONS. Diet: AHA Activity: Fall precautions Followup: Loy Tadeo MD [ACTIVE - CAN ADMIT] - Aden Vences MD [ASSOCIATE-ACTIVE - CAN ADMIT] - Unknown,U [Primary Care Provider] - Time spent managing pt's care (in minutes): 35
== END 2020-09-05 19:30 | disposition home or self-care (01) | DRG 310 ==
LOC: ER 22:51 → ERHOLD 09-04 03:06 → 2ND 09-04 10:49
PROVIDERS: ADMIT Hospitalist; ATTEND Hospitalist
DX: I48.91 Unspecified atrial fibrillation (principal); I10 Essential (primary) hypertension; E11.65 Type 2 diabetes mellitus with hyperglycemia; Z95.0 Presence of cardiac pacemaker; Z79.899 Other long term (current) drug therapy; Z79.82 Long term (current) use of aspirin; Z86.73 Personal history of transient ischemic attack (TIA), and cerebral infarction without residual deficits; Z20.822 Contact with and (suspected) exposure to COVID-19
CPT/HCPCS: 36415; 51702; 70450; 70496; 70498; 71045; 80048; 80076; 80162; 82150; 82550; 82553; 83036; 83605; 83690; 84145; 84439; 84443; 84484; 85025; 85610; 85730; 86140; 87040; 87205; 93005; 99285; J0360; J0692; J0696; Q9967; U0003

== ENCOUNTER 2021-03-24 18:34 | Inpatient (IN) | payer OTHER ==
--- OUTSIDE RECORDS SUMMARY | 2021-03-24 18:37 | XMS REPORT | Continuity of Care Document ---
:1940 Author Organization [facility] t Address [address] [place] [address] Care Team Providers Name Role Phone Unavailable Unavailable Unavailable Problems This patient has no known problems. Allergies, Adverse Reactions, Alerts This patient has no known allergies or adverse reactions. Medications This patient has no known medications. Procedures This patient has no known procedures. Encounters Start End Encounter Admission Attending Care Care Encounter Source Date/Time Date/Time Type Type Clinicians Facility Department ID 2021-03-19 Inpatient E [facility] MED [id number] [facility] H 11:42:00 2021-03-18 2021-03-18 Outpatient [facility] MIGUEL [id number] [facility] 00:00:00 00:00:00 Results This patient has no known results.
--- NOTE | 2021-03-24 19:21 | RAD REPORT ---
EXAM DESCRIPTION: RAD - Chest Single View - 03/24/2021 7:09 pm CLINICAL HISTORY: shortness of breath COMPARISON: Chest Single View dated 09/03/2020 FINDINGS: No evidence of edema or pneumonia. Cardiomegaly. Pacemaker.No acute osseous abnormality. N o significant pleural effusions or pneumothorax. IMPRESSION: No acute cardiopulmonary disease.
[2021-03-24 20:12] LABS: Absolute Lymphocytes (CBC) 0.9 K/uL (0.7-4.9); Basophils % 0.2 % (0-1.3); Lymphocytes % 7.5 % (15.3-44.8); MPV 8.8 fL (7.6-11.3); RBC Red Blood Cell Count 4.99 M/uL (3.86-4.86)
[2021-03-24 20:21] LABS: Protime INR 1.23
[2021-03-24 20:37] LABS: Blood Morphology Comment NOT SEEN (NOT SEEN); Platelet Estimate ADEQ; White Blood Cell Scan OK (OK)
[2021-03-24 20:38] LABS: Urine Blood 1+ (Negative); Urine Glucose Negative (Negative); Urine Protein 2+ (Negative); Urine Specific Gravity 1.025 (1.005-1.030)
[2021-03-24 20:40] LABS: Albumin 2.8 g/dL (3.4-5.0); Bilirubin Direct 0.3 mg/dL (0-0.2); Bilirubin Total 0.8 mg/dL (0.2-1.0); Magnesium 2.3 mg/dL (1.8-2.4); Potassium 3.6 mmol/L (3.5-5.1); Protein, Total 7.4 g/dL (6.4-8.2)
[2021-03-24 20:46] LABS: Troponin (Emerg Dept Use Only) 0.7 ng/mL (0.0-0.045)
--- NOTE | 2021-03-24 21:26 | RAD REPORT ---
EXAM DESCRIPTION: CT - Head Brain Wo Cont - 03/24/2021 9:12 pm CLINICAL HISTORY: weakness, ams COMPARISON: Head angio dated 09/04/2020; Head Brain Wo Cont dated 09/03/2020 TECHNIQUE: All CT scans are performed using dose optimization technique as appropriate and may inclu de automated exposure control or mA/KV adjustment according to patient size. FINDINGS: No intracranial hemorrhage, hydrocephalus or extra-axial fluid collection.No areas of brain edema or evidence of midline shift. Remote high left frontal lobe infarct. Chronic small vessel ischemic ruby es. Postprocedural changes to the left globe. Intracranial atherosclerosis. IMPRESSION: No acute intracranial abnormality. Remote left frontal lobe infarct and chronic small v essel ischemic changes.
--- NOTE | 2021-03-24 21:37 | ER ---
Nurse's Notes [facility] Name: Kay Jin Age: 81 yrs Sex: Female : 1940 Arrival Date: 03/24/2021 Time: 18:41 Bed 6 Private MD: Diagnosis: Altered mental status, unspecified;Non ST elevation [place] Presentation: 03/24 18:59 Chief complaint: EMS states: "the pt was life lighted to [place] yesterday for COVID +. jd3 she was sent home about 24 hours ago when her family has now called and said that she is having fever, hypertension, and shortness of breath since she got home as well as confusion.". Coronavirus screen: Client presents with at least one sign or symptom that may indicate coronavirus-19. Standard/surgical mask placed on the client. Provider contacted for isolation considerations. Ebola Screen: Patient negative for fever greater than or equal to 101.5 degrees Fahrenheit, and additional compatible Ebola Virus Disease symptoms. Initial Sepsis Screen: Does the patient meet any 2 criteria? No. Patient's initial sepsis screen is negative. Does the patient have a suspected source of infection? No. Patient's initial sepsis screen is negative. Risk Assessment: Do you want to hurt yourself or someone else? Patient reports no desire to harm self or others. Onset of symptoms was March 23, 2021. 18:59 Method Of Arrival: EMS: [facility] jd3 18:59 Acuity: WAYNE 2 jd3 Historical: - Allergies: 19:07 No Known Allergies; jd3 - Home Meds: 19:07 Lasix Oral [Active]; Metoprolol Tartrate Oral [Active]; Pradaxa Oral [Active]; losartan jd3 oral [Active]; dexamethasone Oral [Active]; atorvastatin oral [Active]; amlodipine oral [Active]; aspirin Oral [Active]; - PMHx: 19:07 Atrial Fib; Hypertension; TIA; jd3 - Immunization history:: Adult Immunizations up to date. - Social history:: Smoking status: Patient denies any tobacco usage or history of. Screenin:00 Abuse screen: Denies threats or abuse. Nutritional screening: No deficits noted. jb4 Tuberculosis screening: No symptoms or risk factors identified. Fall Risk None identified. 19:10 Patient has been NPO before screening. The patient is not alert, or is unable to follow jb4 commands. Bedside swallow screening discontinued. Patient kept NPO until cleared by Speech Therapy or Physician. Pt confused, unable to answer questions appropriately. The patient is exhibiting difficulty speaking. Provider notified of indication for Speech Therapy consult. The patient failed the bedside swallow screening. The patient will be kept NPO until cleared by Speech Therapy or Physician. Provider notified of bedside swallow screening results: Luis CHAMBERS. Assessment: 19:00 General: Appears in no apparent distress. ill, Behavior is calm, cooperative. Pain: jb4 Denies pain. Neuro: Level of Consciousness is awake, obeys commands, confused, Oriented to person. Cardiovascular: Patient's skin is warm and dry. Respiratory: Airway is patent Respiratory effort is even, unlabored, Respiratory pattern is regular, symmetrical. GI: No signs and/or symptoms were reported involving the gastrointestinal system. : No signs and/or symptoms were reported regarding the genitourinary system. EENT: No signs and/or symptoms were reported regarding the EENT system. Derm: Skin is intact, Skin is pink, warm \\T\\ dry. Musculoskeletal: Circulation, motion, and sensation intact. Range of motion: intact in all extremities. 20:00 Reassessment: Patient appears in no apparent distress at this time. No changes from jb4 previously documented assessment. Patient and/or family updated on plan of care and expected duration. Pain level reassessed. 21:13 Reassessment: Daughter [id number]. ea 21:30 Reassessment: Patient appears in no apparent distress at this time. No changes from jb4 previously documented assessment. Patient and/or family updated on plan of care and expected duration. Pain level reassessed. 03/27 21:48 Reassessment: Patient and/or family updated on plan of care and expected duration. Pain ea level reassessed. Report called to nurse on fourth floor, pt left ED via stretcher , pt tolerating well. Vital Signs: 03/24 19:10 BP 166 / 86; Pulse 106; Resp 17 S; Temp 98.8(TE); Pulse Ox 95% on R/A; jd3 20:15 BP 137 / 87; Pulse 96; Resp 26; Pulse Ox 94% on R/A; jb4 21:30 BP 160 / 77; Pulse 106; Resp 24 S; Pulse Ox 95% on R/A; jb4 ED Course: 18:41 Patient arrived in ED. tr6 18:47 Luis Stanley PA is PHCP. jmm 18:47 Nitish Parra MD is Attending Physician. jmm 19:07 Triage completed. jd3 19:09 XRAY Chest (1 view) In Process Unspecified. EDMS 19:11 Arm band placed on. jd3 20:09 Anson Mitchell, RN is Primary Nurse. jb4 20:38 Romeo cath inserted, using sterile technique, 15 Fr., by md, balloon inflated, to ds4 gravity drainage, urine specimen collected. returned clear yellow urine. Patient tolerated well. 21:12 CT Head Brain wo Cont In Process Unspecified. EDMS 21:36 Poncho Pritchard DO is Hospitalizing Provider. m 21:43 No provider procedures requiring assistance completed. Patient admitted, IV remains in jb4 place. 03/25 08:05 Primary Nurse role handed off by Anson Mitchell, MARTÍN bd 23:30 Olivia Archer, RN is Primary Nurse. ch4 Administered Medications: 03/24 21:08 Not Given (unable to swalloww): Aspirin Chewable Tablet 324 mg PO once; 81 mg tablets x jmm 4 21:31 Not Given (Medication unavailablee): Aspirin Suppository 300 mg ID once jb4 Outcome: 21:37 Decision to Hospitalize by Provider. m 21:43 Admitted to ER Hold. Please see [facility] for further documentation. jb4 21:43 Condition: stable 21:43 Discharge instructions given to family, Instructed on the need for admit, Demonstrated understanding of instructions. 03/27 21:49 Patient left the ED. ea Signatures: Dispatcher [employer] EDMS Leelee Mohamud bd Luis Stanley PA PA jmm Swanson, Donovan ds4 Anson Mitchell RN RN jb4 Flavia Lopez RN RN ea Davies, Jonathon, RN RN jd3 Ramnanan, Tiffany, RN RN tr6 Olivia Archer, MARTÍN RN ch4 Corrections: (The following items were deleted from the chart) 03/24 20:20 19:00 Neuro: Level of Consciousness is awake, obeys commands, confused, jb4 jb4
--- NOTE | 2021-03-24 21:37 | EDPHYS ---
Physician Documentation [facility] Name: Kay Jin Age: 81 yrs Sex: Female : 1940 Arrival Date: 03/24/2021 Time: 18:41 Bed 6 Private MD: ED Physician Nitish Parra HPI: 03/24 18:48 This 81 yrs old Female presents to ER via EMS with complaints of Blood [facility] Pressure issues, Covid + SOB. 18:48 The patient presents with confusion. Onset: The symptoms/episode began/occurred this [facility] morning. Possible causes: CVA or TIA. The patient has experienced similar episodes in the past. 11-year-old female with history of atrial fibrillation, hypertension, transient ischemic attacks who presents emerged part with complaints of confusion. states patient was last known well this morning. Patient unable to articulate complaint. When directly asked if she has chest pain, abdominal pain, shortness of breath, patient states no.. Historical: - Allergies: 19:07 No Known Allergies; jd3 - Home Meds: 19:07 Lasix Oral [Active]; Metoprolol Tartrate Oral [Active]; Pradaxa Oral [Active]; losartan jd3 oral [Active]; dexamethasone Oral [Active]; atorvastatin oral [Active]; amlodipine oral [Active]; aspirin Oral [Active]; - PMHx: 19:07 Atrial Fib; Hypertension; TIA; jd3 - Immunization history:: Adult Immunizations up to date. - Social history:: Smoking status: Patient denies any tobacco usage or history of. ROS: 18:48 Unable to obtain ROS due to altered mental status. [facility] Exam: 18:48 Head/Face: atraumatic. Eyes: EOMI, no conjunctival erythema appreciated ENT: Moist [facility] Mucus Membranes Neck: Trachea midline, Supple Chest/axilla: Normal chest wall appearance and motion. Cardiovascular: Regular rate and rhythm. No edema appreciated Respiratory: Normal respirations, no respiratory distress appreciated Back: Normal ROM 18:48 Constitutional: The patient appears awake. 18:48 Cardiovascular: Rate: tachycardic. 18:48 Musculoskeletal/extremity: ROM: intact in all extremities. 18:48 Skin: Appearance: Color: normal in color. 18:48 Neuro: Orientation: Not oriented to person, place, time. 18:48 Psych: Behavior/mood is pleasant, cooperative. Vital Signs: 19:10 BP 166 / 86; Pulse 106; Resp 17 S; Temp 98.8(TE); Pulse Ox 95% on R/A; jd3 20:15 BP 137 / 87; Pulse 96; Resp 26; Pulse Ox 94% on R/A; jb4 21:30 BP 160 / 77; Pulse 106; Resp 24 S; Pulse Ox 95% on R/A; jb4 MDM: 18:48 Patient medically screened. leida 21:35 Data reviewed: vital signs, nurses notes. Counseling: I had a detailed discussion with olivier the patient and/or guardian regarding:. ED course: I discussed the patient with Carter Padilla who accepted the patient to Dr. Francheska herring.. 03/24 18:51 Order name: Basic Metabolic Panel [facility] 03/24 18:51 Order name: CBC with Diff [facility] 03/24 18:51 Order name: LFT's; Complete Time: 21:00 [facility] 03/24 18:51 Order name: Magnesium; Complete Time: 21:00 [facility] 03/24 18:51 Order name: NT PRO-BNP; Complete Time: 21:00 [facility] 03/24 18:51 Order name: PT-INR; Complete Time: 20:27 [facility] 03/24 18:51 Order name: Troponin (emerg Dept Use Only); Complete Time: 21:00 [facility] 03/24 18:51 Order name: Basic Metabolic Panel; Complete Time: 21:00 [facility] 03/24 18:51 Order name: CBC with Automated Diff; Complete Time: 20:38 [facility] 03/24 20:37 Order name: CBC Smear Scan; Complete Time: 20:38 [facility] 03/24 20:38 Order name: Urine Dipstick-Ancillary; Complete Time: 20:42 [facility] 03/24 21:52 Order name: SARS-COV-2 RT PCR; Complete Time: 21:53 [facility] 03/25 02:24 Order name: CBC with Automated Diff; Complete Time: 15:24 [facility] 03/25 02:46 Order name: Comprehensive Metabolic Panel; Complete Time: 15:24 [facility] 03/25 02:46 Order name: Lipid Profile; Complete Time: 15:24 [facility] 03/25 02:46 Order name: T4 Free; Complete Time: 15:24 [facility] 03/25 02:46 Order name: Magnesium; Complete Time: 15:24 EDMS 03/25 02:46 Order name: Thyroid Stimulating Hormone; Complete Time: 15:24 EDMS 03/25 03:03 Order name: Troponin I; Complete Time: 15:24 EDMS 03/25 06:36 Order name: Troponin I; Complete Time: 15:24 EDMS 03/25 16:09 Order name: C-Reactive Protein; Complete Time: 16:14 EDMS 03/25 16:09 Order name: Ferritin; Complete Time: 16:14 EDMS 03/26 03:09 Order name: CBC with Automated Diff; Complete Time: 17:06 EDMS 03/26 03:29 Order name: Comprehensive Metabolic Panel; Complete Time: 17:06 EDMS 03/26 03:29 Order name: Magnesium; Complete Time: 17:06 EDMS 03/26 09:08 Order name: C-Reactive Protein; Complete Time: 17:06 EDMS 03/26 09:08 Order name: Ferritin; Complete Time: 17:06 [facility] 03/24 18:51 Order name: XRAY Chest (1 view); Complete Time: 19:24 [facility] 03/24 18:51 Order name: EKG; Complete Time: 18:52 [facility] 03/24 18:51 Order name: Cardiac monitoring; Complete Time: 20:08 [facility] 03/24 18:51 Order name: EKG - Nurse/Tech; Complete Time: 20:08 [facility] 03/24 18:51 Order name: IV Saline Lock; Complete Time: 20:08 [facility] 03/24 18:51 Order name: Labs collected and sent; Complete Time: 20:08 [facility] 03/24 18:51 Order name: O2 Per Protocol; Complete Time: 20:08 [facility] 03/24 18:51 Order name: O2 Sat Monitoring; Complete Time: 20:08 [facility] 03/24 20:12 Order name: CT Head Brain wo Cont; Complete Time: 21:27 [facility] 03/24 20:12 Order name: Urine Dipstick-Ancillary (obtain specimen); Complete Time: 20:38 [facility] 03/25 08:23 Order name: US; Complete Time: 15:24 EDMS 03/26 08:34 Order name: RAD; Complete Time: 17:06 EDMS 03/27 05:52 Order name: CBC with Automated Diff EDMS 03/27 06:09 Order name: Comprehensive Metabolic Panel [facility] 03/27 06:09 Order name: C-Reactive Protein [facility] 03/27 06:09 Order name: Magnesium [facility] 03/27 06:09 Order name: Ferritin [facility] 03/27 07:22 Order name: Hemoglobin A1c [facility] 03/27 07:40 Order name: CBC Smear Scan [facility] 03/27 14:59 Order name: RAD EDMS Administered Medications: 21:08 Not Given (unable to swalloww): Aspirin Chewable Tablet 324 mg PO once; 81 mg tablets x jm 4 21:31 Not Given (Medication unavailablee): Aspirin Suppository 300 mg SC once jb4 Disposition Summary: 03/24/21 21:37 Hospitalization Ordered Hospitalization Status: Observation [facility] Provider: Poncho Pritchard Condition: Stable jm Problem: an acute exacerbation jmm Symptoms: are unchanged [facility] Bed/Room Type: Standard [facility] Location: Telemetry/MedSurg (observation)(03/27/21 20:56) cg Room Assignment: [facility](03/27/21 20:56) cg Diagnosis - Altered mental status, unspecified jmm - Non ST elevation [place] [facility] Forms: - Medication Reconciliation Form [facility] - SBAR form [facility] Addendum: 03/30/2021 15:08 Co-signature as Attending Physician, Nitish Parra MD I agree with the assessment and c bazzi plan of care. Signatures: Dispatcher [employer] [facility] Clarissa Nichole RN RN mw Anderson, Corey, MD MD cha Mickail, Joel, PA PA Deidre Rodriguez RN RN cg Davies, Jonathon, RN RN jd3 Bryson, James RN jb4 Corrections: (The following items were deleted from the chart) 03/24 21:05 20:26 CORONAVIRUS+MR.LAB.BRZ ordered. EDUT EDUT 21:35 21:32 CORONAVIRUS ordered. [facility] EDUT 21:42 21:37 Telemetry/MedSurg (observation) [facility] :42 21:37 [facility] 03/27 20:56 03/24 21:42 [facility] ER HOLD [facility] 03/27 20:56 03/24 21:42 [facility]- [facility]
--- NOTE | 2021-03-24 22:37 | P.HP ---
Certification for Inpatient Patient admitted to: Inpatient With expected LOS: >2 Midnights Patient will require the following post-hospital care: None Practitioner: I am a practitioner with admitting privileges, knowledge of patient current condition, hospital course, and medical plan of care. Services: Services provided to patient in accordance with Admission requirements found in Title 42 Section 412.3 of the Code of Federal Regulations Patient History Date of Service: 03/24/21 Primary Care Provider: None Reason for admission: AMS, NSTEMI History of Present Illness: 81-year-old female with history of atrial fibrillation, hypertension, TIA presents emergency department for altered mental status. Daughter reports that Tuesday evening patient had an episode of altered mental status, hypertension and EMS was called, patient was transported via [facility] to [facility] for evaluation. Patient had CT of her head which was reported to have been negative per the daughter, also reportedly had elevated troponin level although the level is not available for review at this time and the daughter is unaware of how high it was. Daughter reports patient was unable to receive MRI as she has a pacemaker, did not receive any further cardiac evaluation to her knowledge while patient was at [facility], patient was discharged yesterday evening, daughter reports at discharge patient was more cognizant, coherent and able to have a discussion with her at that time. Patient lives at home with her , this morning around 0700 he noticed that she was having difficulty communicating again, seem to be having difficulty with her speech this progress throughout the day, this evening he called EMS to transport her to the hospital for further evaluation. Patient was evaluated in the emergency department labs were significant for white blood cell count 12 troponin 0.7 BNP 4849 urinalysis with 1+ blood 2+ total protein negative for UTI patient tested positive for Covid, daughter reports patient first tested positive for Covid during her previous hospitalization. CT head without contrast negative for acute findings but did demonstrate remote left frontal lobe infarct and chronic small vessel ischemic changes, chest x-ray was unremarkable. When I saw the patient in the emergency department she was awake, alert, oriented x2 to name and date, unsure where she was or why she was there. Patient was not able to fully follow commands for detailed neurological exam, log inspector strengths are equal bilaterally but mental status limited rest of exam. Allergies No Known Allergies Allergy (Verified 09/04/20 06:13) Home Medications: Atropine 1% Opth Michelle [Atropine 1% Opth Michelle*] 1 gtt LEFT EYE QIDP PRN 09/04/20 Dabigatran Etexilate Mesylate [Pradaxa] 75 mg PO BID 09/04/20 Metoprolol Tartrate [Lopressor] 100 mg PO BID 09/04/20 Prednisol Acet 1% Opth [Pred Forte 1%*] 1 gtt LEFT EYE Q2HP PRN 09/04/20 Valsartan/Hydrochlorothiazide [Valsartan-Hctz 160-12.5 mg Tab] 1 tab PO DAILY 09/04/20 Amlodipine [Norvasc*] 10 mg PO DAILY #30 tab 09/05/20 Dabigatran Etexilate Mesylate [Pradaxa*] 75 mg PO BID #60 cap 09/05/20 Furosemide [Lasix] 20 mg PO DAILY PRN #15 09/05/20 Losartan Potassium [Cozaar*] 50 mg PO BID #60 tablet 09/05/20 - Past Medical/Surgical History Diabetic: No -: HTN -: 2 TIA's -: Atrial fibrillation -: Keri -: Hyst -: 5 surgeries on left eye -: Stomach Stapling Psychosocial/ Personal History: Patient lives at home with her - Family History Mother -: Heart disease, Cancer Father -: Heart disease - Social History Smoking Status: Unknown if ever smoked Alcohol use: No CD- Drugs: No Caffeine use: No Place of Residence: Home Review of Systems is unable to be obtained Physical Examination - Physical Exam General: Alert, In no apparent distress, Oriented x2, Confused HEENT: Atraumatic, PERRLA, Mucous membr. moist/pink Neck: Supple, 2+ carotid pulse no bruit, No LAD Respiratory: Clear to auscultation bilaterally, Normal air movement Cardiovascular: Regular rate/rhythm, Normal S1 S2 Capillary refill: <2 Seconds Gastrointestinal: Normal bowel sounds, No tenderness Musculoskeletal: No tenderness Integumentary: No rashes Neurological: Other (Patient confused, unable to follow commands well at this time, was able to squeeze hands and log inspector strengths were equal bilaterally, patient oriented x2 face symmetrical, seem to have some difficulty moving legs right greater than left.) - Studies Laboratory Data (last 24 hrs) 03/24/21 20:03: PT 14.2 H, INR 1.23 03/24/21 20:03: WBC 12.00 H, Hgb 14.1, Hct 42.0, Plt Count 208 03/24/21 20:03: Sodium 136, Potassium 3.6, BUN 21 H, Creatinine 0.89, Glucose 147 H, Magnesium 2.3, Total Bilirubin 0.8, AST 35, ALT 33, Alkaline Phosphatase 88 Assessment and Plan - Plan Assessment: NSTEMI history of A. fib S/P pacemaker/defibrillator placement Altered mental status Hypertension Covid 19 positive Plan: NSTEMI history of A. fib S/P pacemaker/defibrillator placement: Monitor on telemetry, trend troponins, cardiology consulted continue with full dose Lovenox. Patient currently n.p.o. pending swallow screen, have ordered aspirin, statin, beta-ciara therapy if patient can tolerate this. Family reports patient was recently seen at [facility] and had elevated troponin, family does not believe patient had any kind of cardiac work-up there. Echocardiogram also ordered. Appreciate further input from cardiology. Altered mental status: Patient with altered mental status, history of TIA. Difficulty with communication and following commands at this time, unable to obtain MRI as patient has pacemaker in place, CT head brain without contrast negative for any acute findings. Neurology consulted continue with echocardiogram, carotid ultrasound, speech therapy, physical therapy, aspirin, statin, folic acid. Appreciate further input from neurology. Hypertension: Obtain and continue medications. Covid 19 positive: Patient not hypoxic at this time, chest x-ray unremarkable we will continue to monitor. DVT PPX: Full dose Lovenox Code status: Full Discharge Plan: Home Plan to discharge in: 48 Hours - Advance Directives Does patient have a Living Will: No Does patient have a Durable POA for Healthcare: No - Code Status/Comfort Care Code Status Assessed: Yes (Full code) Critical Care: No Time Spent Managing Pts Care (In Minutes): 55
[2021-03-24] MEDS ORDERED: ONDANSETRON 4 MG/2 ML VIAL IV PRN (23:50)
[2021-03-25 00:20] VITALS: BMI 28.7
[2021-03-25 02:11] LABS: Absolute Lymphocytes (CBC) 1.2 K/uL (0.7-4.9); Basophils % 0.2 % (0-1.3); Hematocrit 40.5 % (36.0-45.0); Lymphocytes % 10.7 % (15.3-44.8)
[2021-03-25 02:46] LABS: Albumin 2.6 g/dL (3.4-5.0); Bilirubin Total 0.9 mg/dL (0.2-1.0); Magnesium 2.2 mg/dL (1.8-2.4); Potassium 3.6 mmol/L (3.5-5.1); Protein, Total 7.1 g/dL (6.4-8.2); Thyroid Stimulating Hormone 0.78 uIU/mL (0.360-3.740)
[2021-03-25] MEDS ORDERED: METOPROLOL TARTRATE 5 MG/5 ML INJ IV STA (06:00)
[2021-03-25] MEDS ORDERED: METOPROLOL TAR 25 MG TAB PO SCH (06:00)
[2021-03-25] MEDS ORDERED: METOPROLOL TARTRATE 5 MG/5 ML INJ IV ONE ×3 (06:31→19:21)
--- NOTE | 2021-03-25 06:42 | P.PN ---
Subjective Date of Service: 03/25/21 Primary Care Provider: None Chief Complaint: AMS, NSTEMI Subjective: Other (Patient remains unchanged.) Physical Examination - Vital Signs Temperature: 97.3 F Blood Pressure: 193/77 Pulse: 133 Respirations: 20 Pulse Ox (%): 96 - Studies Laboratory Data (last 24 hrs) 03/24/21 20:03: PT 14.2 H, INR 1.23 03/24/21 20:03: WBC 12.00 H, Hgb 14.1, Hct 42.0, Plt Count 208 03/24/21 20:03: Sodium 136, Potassium 3.6, BUN 21 H, Creatinine 0.89, Glucose 147 H, Magnesium 2.3, Total Bilirubin 0.8, AST 35, ALT 33, Alkaline Phosphatase 88 Assessment & Plan Discharge Plan: Home Plan to discharge in: Greater than 2 days Physician Review Additional Text: COVID: Positive CXR: COMPARISON: Chest Single View dated 09/03/2020 FINDINGS: No evidence of edema or pneumonia. Cardiomegaly. Pacemaker.No acute osseous abnormality. No significant pleural effusions or pneumothorax. IMPRESSION: No acute cardiopulmonary disease. CT Head: COMPARISON: Head angio dated 09/04/2020; Head Brain Wo Cont dated 09/03/2020 TECHNIQUE: All CT scans are performed using dose optimization technique as appropriate and may include automated exposure control or mA/KV adjustment according to patient size. FINDINGS: No intracranial hemorrhage, hydrocephalus or extra-axial fluid collection.No areas of brain edema or evidence of midline shift. Remote high left frontal lobe infarct. Chronic small vessel ischemic changes. Postprocedural changes to the left globe. Intracranial atherosclerosis. IMPRESSION: No acute intracranial abnormality. Remote left frontal lobe infarct and chronic small vessel ischemic changes. Carotid doppler: COMPARISON: Neck Angio dated 09/04/2020 TECHNIQUE: Real-time sonographic evaluation of both carotid systems was performed. Doppler interrogation was performed with waveform tracing bilaterally. FINDINGS: Normal high resistance waveforms are noted in both external carotid arteries. The common carotid arteries and internal carotid arteries show normal low resistance waveforms. Soft plaque noted at the left common carotid artery at its midportion and at the left carotid bulb. Peak systolic and end diastolic velocity values and the ICA/C CA ratios are in the non-hemodynamically significant range. Antegrade flow seen in both vertebral arteries. IMPRESSION: Mild soft atherosclerotic plaque in the left CCA and ICA. No evidence of a hemodynamically significant stenosis. Physical Exam: General: Patient alert but confused. Patient with some aphasia HEENT: Neck supple Respiratory: Clear to auscultation bilaterally, Normal air movement Cardiovascular: Irregular irregular rate around 120 Capillary refill: <2 Seconds Gastrointestinal: Normal bowel sounds, No tenderness Musculoskeletal: No tenderness Integumentary: No rashes Neurological: Other (Patient confused, not able to follow commands. Patient able to move extremities. ) Impression: Acute encephalopathy likely related to COVID-19 with history of CVA with CT findings showing remote left frontal lobe infarct Elevated troponin suspect ischemic demand versus NSTEMI with history of history of A. fib S/P pacemaker/defibrillator placement Hypertension Carotid arterial disease Plan: Acute encephalopathy likely related to COVID-19 with history of CVA with CT findings showing remote left frontal lobe infarct: Patient recently [place] [facility] [place] cannot be done due to her pacemaker defibrillator. Repeat CT scan shows no acute intracranial abnormality. Remote left frontal lobe infarct and chronic ischemic changes noted. Continue aspirin. Continue Lovenox at 1 mg/kg subcu twice daily. Patient also on metoprolol, Lipitor. Will start folic acid and thiamine. We will also add D5 normal saline. Await echocardiogram. Will discuss with neurology and cardiology. Will check ferritin and CRP. Consider IV steroids for COVID-19. PT, speech and Occupational Therapy ordered. Aspiration precaution in place. Need medications to be reconciled from home. Will need to discuss with family about plan of care. Elevated troponin suspect ischemic demand versus NSTEMI with history of history of A. fib S/P pacemaker/defibrillator placement: Troponin improved. Continue metoprolol. Continue aspirin and Lovenox. Await further recommendations from cardiology. Likely no need for intervention. Hypertension: Need to obtain home medication. We will continue with metoprolol. Carotid arterial disease: Continue with above plan of care. DVT PPX: Full dose Lovenox Code status: Full Discharge Plan: We will need to discuss with family about plan of care Time Spent Managing Pts Care (In Minutes): 55
--- NOTE | 2021-03-25 08:22 | RAD REPORT ---
EXAM DESCRIPTION: US - CP - 03/25/2021 1:05 am CLINICAL HISTORY: AMS COMPARISON: Neck Angio dated 09/04/2020 TECHNIQUE: Real-time sonographic evaluation of both carotid systems was performed. Doppler interroga tion was performed with waveform tracing bilaterally. FINDINGS: Normal high resistance waveforms are noted in both external carotid arteries. The common c arotid arteries and internal carotid arteries show normal low resistance waveforms. Soft plaque noted at the left common carotid artery at its midportion and at the left carotid bulb. P eak systolic and end diastolic velocity values and the ICA/CCA ratios are in the non-hemodynamically significant range. Antegrade flow seen in both vertebral arteries. IMPRESSION: Mild soft atherosclerotic plaque in the left CCA and ICA. No evidence of a hemodynamically significant stenosis.
[2021-03-25] MEDS ORDERED: KCL 20 MEQ/100 mL IVPB 20 MEQ/100 ML BAG IV SCH (09:00)
[2021-03-25] MEDS: ENOXAPARIN 100 MG/ML SYR SQ SCH ×2 (09:00→21:00)
[2021-03-25] MEDS: ASPIRIN EC 81 MG TAB PO SCH (09:00)
[2021-03-25] MEDS ORDERED: FOLIC ACID 1 MG TABLET PO SCH (09:00)
[2021-03-25] MEDS ORDERED: ASPIRIN EC 81 MG TAB PO ONE (09:54)
[2021-03-25] MEDS ORDERED: FOLIC ACID 1 MG TABLET ONE (09:54)
[2021-03-25] MEDS ORDERED: ENOXAPARIN 100 MG/ML SYR SQ ONE ×2 (09:55→21:29)
[2021-03-25] MEDS ORDERED: ATROPINE 1% OPTH DROPS 5ML OPTH PRN (13:10)
[2021-03-25] MEDS ORDERED: PREDNISOLONE 1% OPTH SOLN 5ML LEFT EYE PRN (13:10)
--- NOTE | 2021-03-25 13:21 | ECHO ---
HEIGHT: 5 ft 10 in WEIGHT: 200 lb 0 oz DATE OF STUDY: 03/25/[address]: Carter Padilla NP 2-DIMENSIONAL: YES M.MODE: YES DOPPLER: YES COLOR FLOW: YES TDS: PORTABLE: DEFINITY: BUBBLE STUDY: DIAGNOSIS: NON ST ELEVATION MYOCARDIAL INFARCTION/ ALTERED MENTAL STATUS CARDIAC HISTORY: CATHERIZATION: NO SURGERY: NO PROSTHETIC VALVE: NO PACEMAKER: YES MEASUREMENTS (cm) DIASTOLIC (NORMALS) SYSTOLIC (NORMALS) IVSd 1.1 (0.6-1.2) LA Diam 5.0 (1.9-4.0) LVEF 27% LVIDd 3.6 (3.5-5.7) LVIDs 3.2 (2.0-3.5) %FS 12% LVPWd 1.0 (0.6-1.2) Ao Diam 2.8 (2.0-3.7) 2 DIMENSIONAL ASSESSMENT: RIGHT ATRIUM: NORMAL LEFT ATRIUM: NORMAL RIGHT VENTRICLE: NORMAL LEFT VENTRICLE: NORMAL SIZE TRICUSPID VALVE: NORMAL MITRAL VALVE: NORMAL PULMONIC VALVE: NORMAL AORTIC VALVE: SCLEROSIS PERICARDIAL EFFUSION: NONE AORTIC ROOT: NORMAL LEFT VENTRICULAR WALL MOTION: SEVERE GLOBAL HYPOKINESIS DOPPLER/COLOR FLOW: MILD MITRAL AND TRICUSPID REGURGITATION. COMMENTS: MILD MITRAL AND TRICUSPID REGURGITATION. SEVERE GLOBAL HYPOKINESIS. EJECTION FRACTION 27%. AORTIC SCLEROSIS. ATRIAL FIBRILLATION. TECHNOLOGIST: SHANNEN VILLANUEVA
[2021-03-25] MEDS: D5 0.9 NS 1,000 ML IV SCH (14:00)
[2021-03-25] MEDS ORDERED: KCL 20 MEQ/100 mL IVPB 20 MEQ/100 ML BAG IV ONE (14:14)
[2021-03-25] MEDS ORDERED: D5 0.9 NS 1,000 ML IV ONE (14:25)
[2021-03-25 16:09] LABS: Ferritin 943.1 ng/mL (8-388)
[2021-03-25] MEDS: METOPROLOL TAR 50 MG TAB PO SCH (17:59)
[2021-03-25] MEDS ORDERED: METOPROLOL TAR 50 MG TAB ONE (18:21)
[2021-03-25] MEDS: ATORVASTATIN 40 MG TAB PO SCH ×2 (21:00)
[2021-03-25] MEDS: METHYLPREDNISOLONE 40 MG INJ IV SCH (21:00)
[2021-03-25] MEDS ORDERED: ATORVASTATIN 20 MG TAB ONE (21:29)
[2021-03-25] MEDS ORDERED: METHYLPREDNISOLONE 40 MG INJ ONE (21:29)
--- NOTE | 2021-03-25 22:11 | CON ---
Consultation called because of altered mental status. History Of Present Illness: Ms. Jin is a 81-year-old right-handed patient with multiple medical problems including atrial fibrillation, hypertension. She does have pacemaker. She has bee n in and out of hospital at [facility] and in [place] for altered mental status. She was found to be COVID positive in [place] but apparently oxygenating well. She was discharged home on the and developed more difficulty with the medication, seemed to be poorly responsive and was brought to [facility]. She is found to have mildly elevated white blood cell count. Her COVID-19 test was positive again. Her head CT scan showed a chronic left frontal lobe infarct along with small-vessel ischemic disease. Otherwise, her blood work aside from showing slightly elevated white blood cell c ount did show elevated troponins, worrisome for myocardial infarction. She had elevated C-reactive p rotein of 183, and she has been followed by the Cardiology Service. Urinalysis showed 2+ protein, 1+ blood. But was negative for esterase or nitrites. She at [facility] did receive hydration, thiamine, folic acid, DVT prophylaxis and was put on aspirin 81 mg d aily. At the time of my evaluation, she required repeated stimulation and eventually gave a thumbs u p with the left hand, did not do so with the right hand and did not equally move the lower extremitie s. Past Medical History: Hypertension, transient ischemic attack, atrial fibrillation. Past Surgical History: Cholecystectomy, hysterectomy, multiple eye surgeries on the left and stomach stapling surgery. Allergies: NO KNOWN DRUG ALLERGIES. Medications: Atropine eye drops 1% in each eye 4 times daily as needed, Pradaxa 75 mg twice daily, L opressor 100 mg twice daily, valsartan-hydrochlorothiazide 160/12.5 daily, Norvasc 10 mg daily, Lasix 20 mg daily, Cozaar 50 mg twice daily. Family History: Father with heart disease. Mother with heart disease and cancer. Social History: Denies any recent alcohol, tobacco, or IV drug use. Review of Systems: Unable to provide a reliable review of systems. Physical Examination: Vital Signs: Blood pressure 154/84, pulse up to 130, respiratory rate 16 to 23, temperature 97.8, ox ygen saturation 98%. Weight 200 pounds, height 5 feet 10 inches, BMI 28.7. General: Ms. Jin is resting in bed, in no apparent distress. She is normocephalic and atraumatic . Sclerae anicteric. Oropharynx is pink and moist. She has mildly decreased breath sounds bilatera lly. Abdomen: Soft. Extremities: Show no significant edema or cyanosis. Neurological: She was oriented to person, but not location, place. She required repeated instructio ns to follow simple commands and she had only showed a thumbs up sign with the left hand after repeat ed encouragement. Did have slight movement of the lower extremities. Did not appear to be very foca lly different [id number]. Could not assess coordination, strength or sensation exam reliably. She at times of physical therapist is along with gait belt. We will have the patient up and ambulating. The physical therapist actually did attempt to have her up and out of bed. The patient could not c omplete the evaluation. She is very slow to respond to instructions. Assessment: Ms. Jin is a 81-year-old patient who is COVID positive. She has multiple reasons for encephalopathy including COVID encephalopathy. Her oxygenation may have been low with an episode of hypoxia; however, it is not clear, it is the case now. She does not have an ABG on record. She pos sibly has a myocardial infarction and is being seen by the Cardiology Service. Her elevated white bl ood cell count with neutrophils is consistent with possible bacterial infection. Plan: 1.Continue aggressive management of possible urinary tract infection, myocardial infarction per Card iology service. 2.Acute monitoring oxygenation with oxygen supplementation. 3.Suggest an EEG to help give insight into the patient's level of neuronal dysfunction. 4.She may require aggressive Speech, Physical and Occupational Therapy to assist in recovery. She a t this point may be discharged with perhaps detention over the next few weeks to facilitate her recovery. TYE/MARÍA ELENAL Voice ID: [id number] Report ID: [id number]
[2021-03-26 03:06] LABS: Absolute Lymphocytes (CBC) 0.4 K/uL (0.7-4.9); Basophils % 0.1 % (0-1.3); Hematocrit 40.4 % (36.0-45.0); Lymphocytes % 3.2 % (15.3-44.8); MPV 9.6 fL (7.6-11.3); RBC Red Blood Cell Count 4.74 M/uL (3.86-4.86)
[2021-03-26 03:29] LABS: Albumin 2.3 g/dL (3.4-5.0); Bilirubin Total 1.3 mg/dL (0.2-1.0); Magnesium 2.3 mg/dL (1.8-2.4); Potassium 3.8 mmol/L (3.5-5.1); Protein, Total 6.9 g/dL (6.4-8.2)
[2021-03-26] MEDS: METOPROLOL TAR 50 MG TAB PO SCH ×2 (06:00→18:00)
--- NOTE | 2021-03-26 06:22 | P.PN ---
Subjective Date of Service: 03/26/21 Primary Care Provider: None Chief Complaint: AMS, NSTEMI Subjective: Other (Patient was alert and appropriate this morning. Patient also able to follow commands) Physical Examination - Vital Signs Temperature: 97.9 F Blood Pressure: 133/87 Pulse: 117 Respirations: 23 Pulse Ox (%): 95 Assessment & Plan Discharge Plan: Other (long term facility) Plan to discharge in: 48 Hours - Code Status/Comfort Care Code Status Assessed: Yes Code Status: Do Not Attempt Resuscitat Physician Review Additional Text: COVID: Positive CXR: COMPARISON: Chest Single View dated 09/03/2020 FINDINGS: No evidence of edema or pneumonia. Cardiomegaly. Pacemaker.No acute osseous abnormality. No significant pleural effusions or pneumothorax. IMPRESSION: No acute cardiopulmonary disease. CT Head: COMPARISON: Head angio dated 09/04/2020; Head Brain Wo Cont dated 09/03/2020 TECHNIQUE: All CT scans are performed using dose optimization technique as appropriate and may include automated exposure control or mA/KV adjustment according to patient size. FINDINGS: No intracranial hemorrhage, hydrocephalus or extra-axial fluid collection.No areas of brain edema or evidence of midline shift. Remote high left frontal lobe infarct. Chronic small vessel ischemic changes. Postprocedural changes to the left globe. Intracranial atherosclerosis. IMPRESSION: No acute intracranial abnormality. Remote left frontal lobe infarct and chronic small vessel ischemic changes. Carotid doppler: COMPARISON: Neck Angio dated 09/04/2020 TECHNIQUE: Real-time sonographic evaluation of both carotid systems was performed. Doppler interrogation was performed with waveform tracing bilaterally. FINDINGS: Normal high resistance waveforms are noted in both external carotid arteries. The common carotid arteries and internal carotid arteries show normal low resistance waveforms. Soft plaque noted at the left common carotid artery at its midportion and at the left carotid bulb. Peak systolic and end diastolic velocity values and the ICA/CCA ratios are in the non-hemodynamically significant range. Antegrade flow seen in both vertebral arteries. IMPRESSION: Mild soft atherosclerotic plaque in the left CCA and ICA. No evidence of a hemodynamically significant stenosis. ECHO: MEASUREMENTS (cm) DIASTOLIC (NORMALS) SYSTOLIC (NORMALS) IVSd 1.1 (0.6-1.2) LA Diam 5.0 (1.9-4.0) LVEF 27% LVIDd 3.6 (3.5-5.7) LVIDs 3.2 (2.0-3.5) %FS 12% LVPWd 1.0 (0.6-1.2) Ao Diam 2.8 (2.0-3.7) 2 DIMENSIONAL ASSESSMENT: RIGHT ATRIUM: NORMAL LEFT ATRIUM: NORMAL RIGHT VENTRICLE: NORMAL LEFT VENTRICLE: NORMAL SIZE TRICUSPID VALVE: NORMAL MITRAL VALVE: NORMAL PULMONIC VALVE: NORMAL AORTIC VALVE: SCLEROSIS PERICARDIAL EFFUSION: NONE AORTIC ROOT: NORMAL LEFT VENTRICULAR WALL MOTION: SEVERE GLOBAL HYPOKINESIS DOPPLER/COLOR FLOW: MILD MITRAL AND TRICUSPID REGURGITATION. COMMENTS: MILD MITRAL AND TRICUSPID REGURGITATION. SEVERE GLOBAL HYPOKINESIS. EJECTION FRACTION 27%. AORTIC SCLEROSIS. ATRIAL FIBRILLATION. EEG: Pending Follow up CXR 03/26/2021: COMPARISON: Chest Single View dated 03/24/2021; Chest Single View dated 09/03/2020 FINDINGS: Lines: None. Lungs: No evidence of edema or pneumonia. Pleural: No significant pleural effusions or pneumothorax. Cardiac: Cardiomegaly. Pacemaker. Atherosclerosis. Bones: No acute fractures. IMPRESSION: No acute cardiopulmonary disease. Physical Exam: General: Patient alert but confused. Patient with some aphasia HEENT: Neck supple Respiratory: Clear to auscultation bilaterally, Normal air movement Cardiovascular: Irregular irregular rate around 120 Capillary refill: <2 Seconds Gastrointestinal: Normal bowel sounds, No tenderness Musculoskeletal: No tenderness Integumentary: No rashes Neurological: Other (Patient confused, not able to follow commands. Patient able to move extremities. ) Impression: Acute encephalopathy likely related to COVID-19 with history of CVA/TIA with CT findings showing remote left frontal lobe infarct Elevated troponin suspect ischemic demand versus NSTEMI with history of history of A. fib S/P pacemaker/defibrillator placement Hypertension Chronic CHF with ejection fraction 27% Carotid arterial disease Chronic renal disease stage IV Hyperglycemia Plan: Acute encephalopathy likely related to COVID-19 with history of CVA/TIA with CT findings showing remote left frontal lobe infarct: Patient recently hospitalized at [facility] [place]. MRI cannot be done due to her pacemaker defibrillator. Repeat CT scan shows no acute intracranial abnormality. Remote left frontal lobe infarct and chronic ischemic changes noted. Continue with aspirin and Lovenox at 1 mg/kg subcu twice daily. Patient more alert and appropriate today. Nurse will try to perform swallow evaluation. If not able then await for speech therapy. Continue IV fluids. Physical therapy recommends skilled placement. Await occupational therapy. Echocardiogram shows ejection fraction of 27%. Severe global hypokinesis noted. We will increase metoprolol to 100 mg 1 pill twice daily. Will discuss with neurology and cardiology about restarting Pradaxa once the patient is able to take oral intake. Continue IV steroids. Continue to monitor ferritin and CRP. Chest x-ray unremarkable. Patient on room air. Case discussed at length with daughter. Daughter agrees with skilled placement. Advanced directives addressed in detail with the daughter. Patient is DNR. Continue to pursue skilled placement. Elevated troponin suspect ischemic demand versus NSTEMI with history of history of A. fib S/P pacemaker/defibrillator placement: Troponin improved. Increase metoprolol to 100 mg 1 pill twice daily. Continue aspirin and Lovenox. Echocardiogram shows ejection fraction 27% with global severe hypokinesis. Hypertension: Need to obtain home medication. We will continue with metoprolol. Chronic CHF with ejection fraction 27%: Will monitor this closely. Consider Lasix if needed. Consider TAN inhibitor if blood pressure still elevated. Will discuss further with cardiology. Carotid arterial disease: Continue with above plan of care. Chronic renal disease stage IV: We will monitor this closely. Hyperglycemia: We will check A1c for evaluation for diabetes DVT PPX: Full dose Lovenox Code status: Spoke to daughter at length. Patient is DNR. Discharge Plan: Spoke with daughter about plan of care. Daughter agrees with skilled placement. Will consult high school social studies teacher to help with this. Time Spent Managing Pts Care (In Minutes): 55
--- NOTE | 2021-03-26 08:33 | RAD REPORT ---
EXAM DESCRIPTION: RAD - Chest Single View - 03/26/2021 4:39 am CLINICAL HISTORY: follow up COVID COMPARISON: Chest Single View dated 03/24/2021; Chest Single View dated 09/03/2020 FINDINGS: Lines: None. Lungs: No evidence of edema or pneumonia. Pleural: No significant pleural effusions or pneumothorax. Cardiac: Cardiomegaly. Pacemaker. Atherosclerosis. Bones: No acute fractures. Other: IMPRESSION: No acute cardiopulmonary disease.
[2021-03-26] MEDS: ASPIRIN EC 81 MG TAB PO SCH (09:00)
[2021-03-26] MEDS: ENOXAPARIN 100 MG/ML SYR SQ SCH ×2 (09:00→21:00)
[2021-03-26] MEDS: FOLIC ACID 1 MG in NA CHLORIDE 0.9% 50 ML IV SCH (09:00)
[2021-03-26] MEDS ORDERED: FOLIC ACID 5 MG/ML VIAL IVP SCH (09:00)
[2021-03-26] MEDS: METHYLPREDNISOLONE 40 MG INJ IV SCH ×2 (09:00→21:00)
[2021-03-26] MEDS: THIAMINE 200 MG/2 ML INJ IVP SCH (09:00)
[2021-03-26 09:08] LABS: Ferritin 1313.5 ng/mL (8-388)
[2021-03-26] MEDS: D5 0.9 NS 1,000 ML IV SCH (09:23)
[2021-03-26] MEDS ORDERED: D5 0.9 NS 1,000 ML IV ONE (09:28)
[2021-03-26] MEDS ORDERED: ENOXAPARIN 100 MG/ML SYR SQ ONE ×2 (09:28→20:00)
[2021-03-26] MEDS ORDERED: METHYLPREDNISOLONE 40 MG INJ ONE ×2 (09:28→19:59)
--- NOTE | 2021-03-26 13:10 | CON ---
Reason For Admission: Non-STEMI, altered mental status, positive COVID. I was consulted for elevate d troponin. History Of Present Illness: Ms. Jin is a 81-year-old woman with a past medical history of atrial fibrillation, hypertension, and TIA, who came in complaining of blood pressure issue, COVID positive, and shortness of breath. Denied PND, orthopnea, pedal edema, palpitations, or syncope. Denied any nausea, vomiting, diaphoresis. Denied any fever or chills, but does known to have COVID and she has had shortness of breath. Allergies: NONE. Review of Systems: Negative. Social History: Negative. Family History: Negative. Medications: At home include metoprolol, Lasix, Pradaxa, losartan, dexamethasone, Lipitor, and amlod ipine and aspirin. Physical Examination: Vital Signs: She was in AFib at 106, which is chronic. Blood pressure is 130/87, O2 saturation 94%. HEENT: Negative. Neck: Supple with no bruit. Chest: Clear to auscultation and percussion. Cardiac: Revealed atrial fibrillation. Abdomen: Benign. Extremities: Revealed no clubbing, cyanosis, or edema. Diagnostic Data: That were available include a white count of 12. Creatinine was normal. Her tropo catrachito was 0.7. BNP was elevated. Her markers including ferritin, C-reactive protein, BNP all of which were positive secondary to go COVID. Impression And Plan: 1.COVID pneumonia. 2.Chronic atrial fibrillation. 3.Hypertension. 4.History of transient ischemic attack. 5.Elevated troponin, most likely secondary to demand ischemia. I think we need to do an echocardiog mireya and I think we need to do a carotid Doppler and we will see what those shows prior to making any further decision. The carotid Doppler is mostly because of acute change in mental status. Continue present regimen otherwise. Dr. Vences is involved in her care. DOLORES/ABHINAV Voice ID: [id number] Report ID: [id number]
--- NOTE | 2021-03-26 13:26 | PN ---
Date of Progress Note: 03/26/2021 Ms. Jin had come in yesterday with hypertensive crisis, shortness of breath, elevated troponin, ch ronic atrial fibrillation for which she takes Pradaxa. Normal creatinine. She has altered mental st atus. Her carotid Doppler showed no significant atherosclerosis; however, her echocardiogram showed an ejection fraction of 27% with atrial fibrillation. No thrombus. She has a normal creatinine. I think she needs to be on carvedilol or beta-ciara which she is on already. I think she should be o n Lasix. She should definitely be on TAN inhibitor. At home, she takes metoprolol, amlodipine, and losartan, which we need to restart. We may have to sometime down the road deal with the atrial fibri llation in a more aggressive way such as ablation as possibly that will raise the ejection fraction, but it is chronic and she is not a candidate for cardioversion at this point neither electrically or with medicine. I would definitely continue beta-blockers. Continue anticoagulation. Continue Lasix . Continue statin. Continue TAN inhibitor. I will discuss the case further with Dr. Pritchard. Diure sis is the mainstay of therapy. Of course, she has COVID that is exacerbating issues and we will jus t have to wait and see how she does. DOLORES/ABHINAV Voice ID: [id number] Report ID: [id number]
--- NOTE | 2021-03-26 14:01 | EEG ---
CHART: [id number] TEST ID#: [id number] DATE OF STUDY: 03/26/2021 THE EEG WAS RECORDED PORTABLE IN THE EMERGENCY ROOM ON A 17 CHANNEL MACHINE. ELECTRODES WERE APPLIED IN THE USUAL MANNER USING THE INTERNATIONAL 10-20 SYSTEM. THE WAKING BACKGROUND RHYTHM IN THIS RECORD CONSISTS OF POORLY DEVELOPED AND POORLY ORGANIZED WAVES OF 5-6 HZ., IN A WIDE DISTRIBUTION WHICH ATTENUATE NORMALLY WITH EYE OPENING. MODERATE VOLTAGE 1.5-3 HZ ACTIVITY IS EXPRESSED IN THE FRONTAL REGIONS. RARE SHARP WAVES ARE EXPRESSED IN THE RIGHT MID-TEMPORAL REGION DURING DROWSINESS. THERE ARE NO FOCAL OR LATERALIZING FEATURES. NO EPILEPTIFORM ACTIVITY APPEARS. SLEEP OCCURRED NATURALLY. IN ADDITION NORMAL SLEEP PATTERNS ARE PRSENT. HYPERVENTILATION WAS NOT PERFORMED. PHOTIC STIMULATION PRODUCED NO DRIVING BILATERALLY. IMPRESSION: THIS IS A MODERATELY ABNORMAL ROUTINE AWAKE AND ASLEEP EEG DUE TO A MODERATELY SLOW BACKGROUN AND RARE RIGHT TEMPORAL SHARP WAVES. THESE FINDINGS INDICATE THE PRESENCE OF A NON-SPECIFIC DIFFUSE DISTURBACE IN CEREBRAL FUNCTION WITH POTENTIALLY EPILEPLOGENIC LESION IN THE RIGHT TEMPORAL REGION.
[2021-03-26] MEDS ORDERED: METOPROLOL TAR 50 MG TAB ONE (18:33)
[2021-03-26] MEDS ORDERED: DIGOXIN 0.25 MG/ML AMP IV ONE (19:02)
[2021-03-26] MEDS ORDERED: DIGOXIN 0.25 MG/ML AMP ONE (19:23)
[2021-03-26] MEDS ORDERED: ATORVASTATIN 20 MG TAB ONE (19:59)
[2021-03-26] MEDS: ATORVASTATIN 40 MG TAB PO SCH (21:00)
[2021-03-27 05:49] LABS: Absolute Lymphocytes (CBC) 0.4 K/uL (0.7-4.9); Basophils % 0.1 % (0-1.3); Hematocrit 39.8 % (36.0-45.0); Lymphocytes % 4.2 % (15.3-44.8); MPV 9.4 fL (7.6-11.3); RBC Red Blood Cell Count 4.65 M/uL (3.86-4.86)
[2021-03-27] MEDS: D5 0.9 NS 1,000 ML IV SCH (06:00)
[2021-03-27] MEDS: METOPROLOL TAR 50 MG TAB PO SCH ×2 (06:00→18:00)
[2021-03-27 06:09] LABS: Bilirubin Total 0.6 mg/dL (0.2-1.0); Magnesium 2.6 mg/dL (1.8-2.4); Potassium 3.6 mmol/L (3.5-5.1); Protein, Total 6.6 g/dL (6.4-8.2)
--- NOTE | 2021-03-27 06:36 | P.PN ---
Subjective Date of Service: 03/27/21 Primary Care Provider: None Chief Complaint: AMS, NSTEMI Subjective: Improving Physical Examination - Vital Signs Temperature: 98 F Blood Pressure: 149/75 Pulse: 82 Respirations: 19 Pulse Ox (%): 95 Assessment & Plan Discharge Plan: Halfway Plan to discharge in: 48 Hours Physician Review Additional Text: COVID: Positive CXR: COMPARISON: Chest Single View dated 09/03/2020 FINDINGS: No evidence of edema or pneumonia. Cardiomegaly. Pacemaker.No acute osseous abnormality. No significant pleural effusions or pneumothorax. IMPRESSION: No acute cardiopulmonary disease. CT Head: COMPARISON: Head angio dated 09/04/2020; Head Brain Wo Cont dated 09/03/2020 TECHNIQUE: All CT scans are performed using dose optimization technique as appropriate and may include automated exposure control or mA/KV adjustment according to patient size. FINDINGS: No intracranial hemorrhage, hydrocephalus or extra-axial fluid collection.No areas of brain edema or evidence of midline shift. Remote high left frontal lobe infarct. Chronic small vessel ischemic changes. Postprocedural changes to the left globe. Intracranial atherosclerosis. IMPRESSION: No acute intracranial abnormality. Remote left frontal lobe infarct and chronic small vessel ischemic changes. Carotid doppler: COMPARISON: Neck Angio dated 09/04/2020 TECHNIQUE: Real-time sonographic evaluation of both carotid systems was performed. Doppler interrogation was performed with waveform tracing bilaterally. FINDINGS: Normal high resistance waveforms are noted in both external carotid arteries. The common carotid arteries and internal carotid arteries show normal low resistance waveforms. Soft plaque noted at the left common carotid artery at its midportion and at the left carotid bulb. Peak systolic and end diastolic velocity values and the ICA/CCA ratios are in the non-hemodynamically significant range. Antegrade flow seen in both vertebral arteries. IMPRESSION: Mild soft atherosclerotic plaque in the left CCA and ICA. No evidence of a hemodynamically significant stenosis. ECHO: MEASUREMENTS (cm) DIASTOLIC (NORMALS) SYSTOLIC (NORMALS) IVSd 1.1 (0.6-1.2) LA Diam 5.0 (1.9-4.0) LVEF 27% LVIDd 3.6 (3.5-5.7) LVIDs 3.2 (2.0-3.5) %FS 12% LVPWd 1.0 (0.6-1.2) Ao Diam 2.8 (2.0-3.7) 2 DIMENSIONAL ASSESSMENT: RIGHT ATRIUM: NORMAL LEFT ATRIUM: NORMAL RIGHT VENTRICLE: NORMAL LEFT VENTRICLE: NORMAL SIZE TRICUSPID VALVE: NORMAL MITRAL VALVE: NORMAL PULMONIC VALVE: NORMAL AORTIC VALVE: SCLEROSIS PERICARDIAL EFFUSION: NONE AORTIC ROOT: NORMAL LEFT VENTRICULAR WALL MOTION: SEVERE GLOBAL HYPOKINESIS DOPPLER/COLOR FLOW: MILD MITRAL AND TRICUSPID REGURGITATION. COMMENTS: MILD MITRAL AND TRICUSPID REGURGITATION. SEVERE GLOBAL HYPOKINESIS. EJECTION FRACTION 27%. AORTIC SCLEROSIS. ATRIAL FIBRILLATION. EEG: Pending Follow up CXR 03/26/2021: COMPARISON: Chest Single View dated 03/24/2021; Chest Single View dated 09/03/2020 FINDINGS: Lines: None. Lungs: No evidence of edema or pneumonia. Pleural: No significant pleural effusions or pneumothorax. Cardiac: Cardiomegaly. Pacemaker. Atherosclerosis. Bones: No acute fractures. IMPRESSION: No acute cardiopulmonary disease. Physical Exam: General: Patient alert but confused. Patient with some aphasia HEENT: Neck supple Respiratory: Clear to auscultation bilaterally, Normal air movement Cardiovascular: A. fib rate controlled Capillary refill: <2 Seconds Gastrointestinal: Normal bowel sounds, No tenderness Musculoskeletal: No tenderness Integumentary: No rashes Neurological: Other (Patient confused, not able to follow commands. Patient able to move extremities. ) Impression: Acute encephalopathy likely related to COVID-19 with history of CVA/TIA with CT findings showing remote left frontal lobe infarct Elevated troponin suspect ischemic demand versus NSTEMI with history of history of A. fib S/P pacemaker/defibrillator placement Hypertension Chronic CHF with ejection fraction 27% Carotid arterial disease Chronic renal disease stage IV Hyperglycemia Plan: Acute encephalopathy likely related to COVID-19 with history of CVA/TIA with CT findings showing remote left frontal lobe infarct: Patient remained stable at this time. Patient passed her swallow evaluation with speech. Will provide mechanical soft. We will change Lovenox to Pradaxa. Increase metoprolol has been addressed. Patient remained stable. Patient on room air. Will change IV steroids to oral. Patient remains DNR. We will pursue skilled placement. Elevated troponin suspect ischemic demand versus NSTEMI with history of history of A. fib S/P pacemaker/defibrillator placement: Rate better controlled with metoprolol at 100 mg 1 pill twice daily. Continue Pradaxa. Discontinue Lovenox full dose. Echocardiogram shows ejection fraction 27% with global severe hypokinesis. Hypertension: Continue metoprolol Chronic CHF with ejection fraction 27%: Will monitor this closely. Consider Lasix if needed. Consider TAN inhibitor if blood pressure still elevated. Will discuss further with cardiology. Carotid arterial disease: Continue with above plan of care. Chronic renal disease stage IV: We will monitor this closely. Hyperglycemia: We will check A1c DVT PPX: Pradaxa Code status: Spoke to daughter at length. Patient is DNR. Discharge Plan: Spoke with daughter about plan of care. Daughter agrees with skilled placement. Time Spent Managing Pts Care (In Minutes): 55
[2021-03-27 07:39] LABS: Blood Morphology Comment NOT SEEN (NOT SEEN); Platelet Estimate ADEQ; White Blood Cell Scan OK (OK)
[2021-03-27] MEDS: FOLIC ACID 1 MG in NA CHLORIDE 0.9% 50 ML IV SCH (09:00)
[2021-03-27] MEDS: THIAMINE 200 MG/2 ML INJ IVP SCH (09:00)
[2021-03-27] MEDS: ASPIRIN EC 81 MG TAB PO SCH (09:00)
[2021-03-27] MEDS: METHYLPREDNISOLONE 40 MG INJ IV SCH (09:00)
[2021-03-27] MEDS: ENOXAPARIN 100 MG/ML SYR SQ SCH (09:00)
[2021-03-27] MEDS ORDERED: ENOXAPARIN 100 MG/ML SYR SQ ONE (09:18)
[2021-03-27] MEDS ORDERED: THIAMINE 200 MG/2 ML INJ ONE (09:18)
[2021-03-27] MEDS ORDERED: METHYLPREDNISOLONE 40 MG INJ ONE (09:18)
[2021-03-27] MEDS ORDERED: ASPIRIN EC 81 MG TAB PO ONE (09:18)
[2021-03-27] MEDS ORDERED: METOPROLOL TAR 50 MG TAB ONE ×2 (09:18→18:48)
[2021-03-27] MEDS ORDERED: D5 0.9 NS 1,000 ML IV ONE (11:27)
--- NOTE | 2021-03-27 14:57 | RAD REPORT ---
EXAM DESCRIPTION: RAD - Barium Swallow Modified - 03/27/2021 2:51 pm CLINICAL HISTORY: CVA, respiratory complications (COVID) / PNA, coughing / choking with thin FINDINGS: Aspiration: delayed cough with thin by cup w/ tablet Pharyngeal residue: vallecular - mild with all consistencies : thin by spoon, thin by cup, thin by st raw, nectar by cup, puree by spoon, solid, thin by cup with tablet Other: minimal epiglottic deflection, no dentition, multiple swallows with puree, severe esophageal s tasis observed at end of study Fluoroscopy time 4.4 minutes. Eighteen fluoroscopic spot series obtained
[2021-03-27] MEDS: NACHLORIDE 0.45% 1,000 ML IV SCH (16:00)
[2021-03-27] MEDS ORDERED: NACHLORIDE 0.45% 1,000 ML IV ONE (18:49)
[2021-03-27] MEDS: DABIGATRAN 75 MG CAP PO SCH (21:00)
[2021-03-27] MEDS: ATORVASTATIN 40 MG TAB PO SCH (23:09)
[2021-03-27] MEDS: predniSONE 20 MG TAB PO SCH (23:16)
[2021-03-28 04:37] LABS: Absolute Lymphocytes (CBC) 0.3 K/uL (0.7-4.9); Basophils % 0.1 % (0-1.3); Hematocrit 39.9 % (36.0-45.0); Lymphocytes % 4.2 % (15.3-44.8); MPV 9.2 fL (7.6-11.3); RBC Red Blood Cell Count 4.66 M/uL (3.86-4.86)
[2021-03-28] MEDS: METOPROLOL TAR 50 MG TAB PO SCH ×2 (05:00→17:59)
[2021-03-28 05:43] LABS: Bilirubin Total 0.5 mg/dL (0.2-1.0); Ferritin 1335.2 ng/mL (8-388); Magnesium 2.4 mg/dL (1.8-2.4); Potassium 4.1 mmol/L (3.5-5.1); Protein, Total 6.5 g/dL (6.4-8.2)
[2021-03-28] MEDS ORDERED: GLUCAGON 1 MG/VIAL IM PRN (05:51)
[2021-03-28] MEDS ORDERED: D50W 25 GM/50 ML SYRINGE IV PRN (05:51)
--- NOTE | 2021-03-28 06:25 | P.PN ---
Subjective Date of Service: 03/28/21 Primary Care Provider: None Chief Complaint: AMS, NSTEMI Subjective: Improving, Demented, Other (Patient on room air) Physical Examination - Vital Signs Temperature: 98.1 F Blood Pressure: 185/81 Pulse: 74 Respirations: 20 Pulse Ox (%): 95 Assessment & Plan Discharge Plan: Other (detention facility) Plan to discharge in: 72 Hours Physician Review Additional Text: COVID: Positive CXR: COMPARISON: Chest Single View dated 09/03/2020 FINDINGS: No evidence of edema or pneumonia. Cardiomegaly. Pacemaker.No acute osseous abnormality. No significant pleural effusions or pneumothorax. IMPRESSION: No acute cardiopulmonary disease. CT Head: COMPARISON: Head angio dated 09/04/2020; Head Brain Wo Cont dated 09/03/2020 TECHNIQUE: All CT scans are performed using dose optimization technique as appropriate and may include automated exposure control or mA/KV adjustment according to patient size. FINDINGS: No intracranial hemorrhage, hydrocephalus or extra-axial fluid collection.No areas of brain edema or evidence of midline shift. Remote high left frontal lobe infarct. Chronic small vessel ischemic changes. Postprocedural changes to the left globe. Intracranial atherosclerosis. IMPRESSION: No acute intracranial abnormality. Remote left frontal lobe infarct and chronic small vessel ischemic changes. Carotid doppler: COMPARISON: Neck Angio dated 09/04/2020 TECHNIQUE: Real-time sonographic evaluation of both carotid systems was performed. Doppler interrogation was performed with waveform tracing bilaterally. FINDINGS: Normal high resistance waveforms are noted in both external carotid arteries. The common carotid arteries and internal carotid arteries show normal low resistance waveforms. Soft plaque noted at the left common carotid artery at its midportion and at the left carotid bulb. Peak systolic and end diastolic velocity values and the ICA/CCA ratios are in the non-hemodynamically significant range. Antegrade flow seen in both vertebral arteries. IMPRESSION: Mild soft atherosclerotic plaque in the left CCA and ICA. No evidence of a hemodynamically significant stenosis. ECHO: MEASUREMENTS (cm) DIASTOLIC (NORMALS) SYSTOLIC (NORMALS) IVSd 1.1 (0.6-1.2) LA Diam 5.0 (1.9-4.0) LVEF 27% LVIDd 3.6 (3.5-5.7) LVIDs 3.2 (2.0-3.5) %FS 12% LVPWd 1.0 (0.6-1.2) Ao Diam 2.8 (2.0-3.7) 2 DIMENSIONAL ASSESSMENT: RIGHT ATRIUM: NORMAL LEFT ATRIUM: NORMAL RIGHT VENTRICLE: NORMAL LEFT VENTRICLE: NORMAL SIZE TRICUSPID VALVE: NORMAL MITRAL VALVE: NORMAL PULMONIC VALVE: NORMAL AORTIC VALVE: SCLEROSIS PERICARDIAL EFFUSION: NONE AORTIC ROOT: NORMAL LEFT VENTRICULAR WALL MOTION: SEVERE GLOBAL HYPOKINESIS DOPPLER/COLOR FLOW: MILD MITRAL AND TRICUSPID REGURGITATION. COMMENTS: MILD MITRAL AND TRICUSPID REGURGITATION. SEVERE GLOBAL HYPOKINESIS. EJECTION FRACTION 27%. AORTIC SCLEROSIS. ATRIAL FIBRILLATION. EEG: Pending Follow up CXR 03/26/2021: COMPARISON: Chest Single View dated 03/24/2021; Chest Single View dated 09/03/2020 FINDINGS: Lines: None. Lungs: No evidence of edema or pneumonia. Pleural: No significant pleural effusions or pneumothorax. Cardiac: Cardiomegaly. Pacemaker. Atherosclerosis. Bones: No acute fractures. IMPRESSION: No acute cardiopulmonary disease. Physical Exam: General: Patient alert. Cooperative. Patient follows commands HEENT: Neck supple Respiratory: Clear to auscultation bilaterally, Normal air movement Cardiovascular: A. fib rate controlled Capillary refill: <2 Seconds Gastrointestinal: Normal bowel sounds, No tenderness Musculoskeletal: No tenderness Integumentary: No rashes Neurological: Patient alert. Some dementia noted Impression: Acute encephalopathy likely related to COVID-19 with history of CVA/TIA with CT findings showing remote left frontal lobe infarct Elevated troponin suspect ischemic demand versus NSTEMI with history of history of A. fib S/P pacemaker/defibrillator placement Hypertension Chronic CHF with ejection fraction 27% Carotid arterial disease Chronic renal disease stage IV Hyperglycemia with new diabetes mellitus type 2 Plan: Acute encephalopathy likely related to COVID-19 with history of CVA/TIA with CT findings showing remote left frontal lobe infarct: Overall improved. Patient now on mechanical soft diet. Medications reviewed and adjusted yesterday. Patient remains DNR. Continue to pursue skilled placement. Discontinue IV fluids. Decrease oral steroid. Elevated troponin suspect ischemic demand versus NSTEMI with history of history of A. fib S/P pacemaker/defibrillator placement: Rate better controlled with metoprolol at 100 mg 1 pill twice daily. Continue Pradaxa. Discontinue Lovenox full dose. Echocardiogram shows ejection fraction 27% with global severe hypokinesis. Hypertension: Continue metoprolol. Will add losartan for better control. IV medication added as needed. Chronic CHF with ejection fraction 27%: Will monitor this closely. Consider Lasix if needed. Seen with cardiology recommendations Carotid arterial disease: Continue with above plan of care. Chronic renal disease stage IV: We will monitor this closely. Hyperglycemia with new diabetes mellitus type 2: A1c 6.8. Continue Accu-Cheks and sliding scale. Decrease oral steroid. Currently on Lantus. Will monitor and adjust medication appropriately DVT PPX: Pradaxa Code status: Spoke to daughter at length. Patient is DNR. Discharge Plan: Spoke with daughter about plan of care. Daughter agrees with skilled placement. Time Spent Managing Pts Care (In Minutes): 55
[2021-03-28] MEDS: ASPIRIN EC 81 MG TAB PO SCH (08:11)
[2021-03-28] MEDS: predniSONE 20 MG TAB PO SCH (08:11)
[2021-03-28] MEDS: INSULIN -REGULAR HUMAN 50 UNIT/0.5 ML ML SQ SCH ×4 (08:11→20:54)
[2021-03-28] MEDS: FOLIC ACID 1 MG TABLET PO SCH (08:11)
[2021-03-28] MEDS: THIAMINE HCL 100 MG TABLET PO SCH (08:11)
[2021-03-28] MEDS: INSULIN GLARGINE 100 UNITS/ML SQ SCH ×2 (08:12→20:54)
[2021-03-28] MEDS ORDERED: INSULIN GLARGINE 100 UNITS/ML SQ SCH (09:00)
[2021-03-28] MEDS: DABIGATRAN 75 MG CAP PO SCH ×2 (09:00→20:53)
[2021-03-28] MEDS: NACHLORIDE 0.45% 1,000 ML IV SCH (12:00)
[2021-03-28] MEDS: HYDRALAZINE HCL 20 MG/ML VIAL IV PRN (16:40)
[2021-03-28] MEDS: predniSONE 10 MG TAB PO SCH (20:53)
[2021-03-28] MEDS: ATORVASTATIN 40 MG TAB PO SCH (20:53)
[2021-03-29] MEDS: HYDRALAZINE HCL 20 MG/ML VIAL IV PRN ×2 (00:38→22:03)
[2021-03-29] MEDS: METOPROLOL TAR 50 MG TAB PO SCH ×2 (05:03→17:15)
--- NOTE | 2021-03-29 06:15 | P.PN ---
Subjective Date of Service: 03/29/21 Primary Care Provider: None Chief Complaint: AMS, NSTEMI Subjective: Improving, Doing well Physical Examination - Vital Signs Temperature: 97.0 F Blood Pressure: 143/80 Pulse: 84 Respirations: 17 Pulse Ox (%): 96 Assessment & Plan Discharge Plan: Other (penitentiary facility) Plan to discharge in: 48 Hours Physician Review Additional Text: COVID: Positive CXR: COMPARISON: Chest Single View dated 09/03/2020 FINDINGS: No evidence of edema or pneumonia. Cardiomegaly. Pacemaker.No acute osseous abnormality. No significant pleural effusions or pneumothorax. IMPRESSION: No acute cardiopulmonary disease. CT Head: COMPARISON: Head angio dated 09/04/2020; Head Brain Wo Cont dated 09/03/2020 TECHNIQUE: All CT scans are performed using dose optimization technique as appropriate and may include automated exposure control or mA/KV adjustment according to patient size. FINDINGS: No intracranial hemorrhage, hydrocephalus or extra-axial fluid collection.No areas of brain edema or evidence of midline shift. Remote high left frontal lobe infarct. Chronic small vessel ischemic changes. Postprocedural changes to the left globe. Intracranial atherosclerosis. IMPRESSION: No acute intracranial abnormality. Remote left frontal lobe infarct and chronic small vessel ischemic changes. Carotid doppler: COMPARISON: Neck Angio dated 09/04/2020 TECHNIQUE: Real-time sonographic evaluation of both carotid systems was performed. Doppler interrogation was performed with waveform tracing bilaterally. FINDINGS: Normal high resistance waveforms are noted in both external carotid arteries. The common carotid arteries and internal carotid arteries show normal low resistance waveforms. Soft plaque noted at the left common carotid artery at its midportion and at the left carotid bulb. Peak systolic and end diastolic velocity values and the ICA/CCA ratios are in the non-hemodynamically significant range. Antegrade flow seen in both vertebral arteries. IMPRESSION: Mild soft atherosclerotic plaque in the left CCA and ICA. No evidence of a hemodynamically significant stenosis. ECHO: MEASUREMENTS (cm) DIASTOLIC (NORMALS) SYSTOLIC (NORMALS) IVSd 1.1 (0.6-1.2) LA Diam 5.0 (1.9-4.0) LVEF 27% LVIDd 3.6 (3.5-5.7) LVIDs 3.2 (2.0-3.5) %FS 12% LVPWd 1.0 (0.6-1.2) Ao Diam 2.8 (2.0-3.7) 2 DIMENSIONAL ASSESSMENT: RIGHT ATRIUM: NORMAL LEFT ATRIUM: NORMAL RIGHT VENTRICLE: NORMAL LEFT VENTRICLE: NORMAL SIZE TRICUSPID VALVE: NORMAL MITRAL VALVE: NORMAL PULMONIC VALVE: NORMAL AORTIC VALVE: SCLEROSIS PERICARDIAL EFFUSION: NONE AORTIC ROOT: NORMAL LEFT VENTRICULAR WALL MOTION: SEVERE GLOBAL HYPOKINESIS DOPPLER/COLOR FLOW: MILD MITRAL AND TRICUSPID REGURGITATION. COMMENTS: MILD MITRAL AND TRICUSPID REGURGITATION. SEVERE GLOBAL HYPOKINESIS. EJECTION FRACTION 27%. AORTIC SCLEROSIS. ATRIAL FIBRILLATION. EEG: Pending Follow up CXR 03/26/2021: COMPARISON: Chest Single View dated 03/24/2021; Chest Single View dated 09/03/2020 FINDINGS: Lines: None. Lungs: No evidence of edema or pneumonia. Pleural: No significant pleural effusions or pneumothorax. Cardiac: Cardiomegaly. Pacemaker. Atherosclerosis. Bones: No acute fractures. IMPRESSION: No acute cardiopulmonary disease. EEG: DATE OF STUDY: 03/26/2021 THE EEG WAS RECORDED PORTABLE IN THE EMERGENCY ROOM ON A 17 CHANNEL MACHINE. ELECTRODES WERE APPLIED IN THE USUAL MANNER USING THE INTERNATIONAL 10-20 SYSTEM. THE WAKING BACKGROUND RHYTHM IN THIS RECORD CONSISTS OF POORLY DEVELOPED AND POORLY ORGANIZED WAVES OF 5-6 HZ., IN A WIDE DISTRIBUTION WHICH ATTENUATE NORMALLY WITH EYE OPENING. MODERATE VOLTAGE 1.5-3 HZ ACTIVITY IS EXPRESSED IN THE FRONTAL REGIONS. RARE SHARP WAVES ARE EXPRESSED IN THE RIGHT MID-TEMPORAL REGION DURING DROWSINESS. THERE ARE NO FOCAL OR LATERALIZING FEATURES. NO EPILEPTIFORM ACTIVITY APPEARS. SLEEP OCCURRED NATURALLY. IN ADDITION NORMAL SLEEP PATTERNS ARE PRSENT. HYPERVENTILATION WAS NOT PERFORMED. PHOTIC STIMULATION PRODUCED NO DRIVING BILATERALLY. IMPRESSION: THIS IS A MODERATELY ABNORMAL ROUTINE AWAKE AND ASLEEP EEG DUE TO A MODERATELY SLOW BACKGROUN AND RARE RIGHT TEMPORAL SHARP WAVES. THESE FINDINGS INDICATE THE PRESENCE OF A NON-SPECIFIC DIFFUSE DISTURBACE IN CEREBRAL FUNCTION WITH POTENTIALLY EPILEPLOGENIC LESION IN THE RIGHT TEMPORAL REGION. Physical Exam: General: Patient alert. Cooperative. Patient follows commands HEENT: Neck supple Respiratory: Clear to auscultation bilaterally, Normal air movement Cardiovascular: A. fib rate controlled Capillary refill: <2 Seconds Gastrointestinal: Normal bowel sounds, No tenderness Musculoskeletal: No tenderness Integumentary: No rashes Neurological: Patient alert. Some dementia noted Impression: Acute encephalopathy likely related to COVID-19 with history of CVA/TIA with CT findings showing remote left frontal lobe infarct Elevated troponin suspect ischemic demand versus NSTEMI with history of history of A. fib S/P pacemaker/defibrillator placement Hypertension Chronic CHF with ejection fraction 27% Carotid arterial disease Chronic renal disease stage IV Hyperglycemia with new diabetes mellitus type 2 Plan: Acute encephalopathy likely related to COVID-19 with history of CVA/TIA with CT findings showing remote left frontal lobe infarct: Overall improved. Tolerating on mechanical soft diet. COVID infection improved. Now on RA. Currently on Prednisone 10 mg BID. This will be tapered off over the next 14 days. Patient may continue with folic acid and thiamine. Patient remains on aspirin, Pradaxa for her history of CVA/TIA. Continue physical therapy. Awaiting approval for skilled placement. Patient will go to a facility in [place]. This will likely occur as early as Tuesday. He is discussed with daughter on plan of care. She agrees with current plan. Elevated troponin suspect ischemic demand versus NSTEMI with history of history of A. fib S/P pacemaker/defibrillator placement: Rate better controlled with metoprolol at 100 mg 1 pill twice daily. Continue Pradaxa 75 mg 1 pill twice daily and aspirin 81 mg daily. Echocardiogram shows ejection fraction 27% with global severe hypokinesis. Hypertension: Continue metoprolol 100 mg 1 pill twice daily. Losartan 50 mg once daily was added yesterday. Blood pressure improved. Continue with current medication. Consider adjustment in losartan. Chronic CHF with ejection fraction 27%: Will monitor this closely. Currently stable at this time. Continue metoprolol and losartan as directed. Carotid arterial disease: Continue with above plan of care. Chronic renal disease stage IV: Renal function back to baseline. Hyperglycemia with new diabetes mellitus type 2: A1c 7.3. Continue Accu-Cheks and sliding scale. Decrease oral steroid. Currently on Lantus 15 units subcu twice daily. Will monitor and adjust medication appropriately DVT PPX: Pradaxa Code status: Spoke to daughter at length. Patient remains DO NOT RESUSCITATE. Discharge Plan: Spoke with daughter at length with current plan of care. We will continue to pursue skilled placement at discharge. Daughter's name is Linda. Time Spent Managing Pts Care (In Minutes): 55
[2021-03-29 06:31] LABS: Absolute Lymphocytes (CBC) 0.6 K/uL (0.7-4.9); Basophils % 0.1 % (0-1.3); Hematocrit 40.4 % (36.0-45.0); MPV 8.9 fL (7.6-11.3); RBC Red Blood Cell Count 4.77 M/uL (3.86-4.86)
[2021-03-29 06:59] LABS: Bilirubin Total 0.4 mg/dL (0.2-1.0); C-Reactive Protein 32.4 mg/L (<3.00); Ferritin 866.9 ng/mL (8-388); Magnesium 2.3 mg/dL (1.8-2.4); Potassium 4.5 mmol/L (3.5-5.1); Protein, Total 6.6 g/dL (6.4-8.2)
[2021-03-29] MEDS: INSULIN -REGULAR HUMAN 50 UNIT/0.5 ML ML SQ SCH ×4 (09:00→20:58)
[2021-03-29] MEDS: THIAMINE HCL 100 MG TABLET PO SCH (09:00)
[2021-03-29] MEDS: LOSARTAN POTASSIUM 50 MG TABLET PO SCH (09:00)
[2021-03-29] MEDS: predniSONE 10 MG TAB PO SCH ×2 (09:00→20:49)
[2021-03-29] MEDS: ASPIRIN EC 81 MG TAB PO SCH (09:00)
[2021-03-29] MEDS: INSULIN GLARGINE 100 UNITS/ML SQ SCH ×2 (09:01→20:58)
[2021-03-29] MEDS: FOLIC ACID 1 MG TABLET PO SCH (09:03)
[2021-03-29] MEDS: DABIGATRAN 75 MG CAP PO SCH ×2 (09:06→20:49)
[2021-03-29] MEDS: ATORVASTATIN 40 MG TAB PO SCH (20:49)
[2021-03-30 03:47] LABS: Absolute Lymphocytes (CBC) 0.9 K/uL (0.7-4.9); Basophils % 0.6 % (0-1.3); Hematocrit 40.8 % (36.0-45.0); Lymphocytes % 9.9 % (15.3-44.8); MPV 8.8 fL (7.6-11.3); RBC Red Blood Cell Count 4.83 M/uL (3.86-4.86)
[2021-03-30 04:16] LABS: C-Reactive Protein 17.5 mg/L (<3.00); Magnesium 2.3 mg/dL (1.8-2.4); Potassium 4.6 mmol/L (3.5-5.1)
[2021-03-30] MEDS: METOPROLOL TAR 50 MG TAB PO SCH ×2 (05:40→18:07)
[2021-03-30] MEDS: INSULIN -REGULAR HUMAN 50 UNIT/0.5 ML ML SQ SCH ×4 (07:30→21:00)
[2021-03-30] MEDS: THIAMINE HCL 100 MG TABLET PO SCH (08:07)
[2021-03-30] MEDS: HYDRALAZINE HCL 20 MG/ML VIAL IV PRN ×2 (08:07→23:31)
[2021-03-30] MEDS: INSULIN GLARGINE 100 UNITS/ML SQ SCH ×2 (08:07→21:08)
[2021-03-30] MEDS: predniSONE 10 MG TAB PO SCH ×2 (08:07→21:08)
[2021-03-30] MEDS: LOSARTAN POTASSIUM 50 MG TABLET PO SCH (08:07)
[2021-03-30] MEDS: ASPIRIN EC 81 MG TAB PO SCH (08:07)
[2021-03-30] MEDS: FOLIC ACID 1 MG TABLET PO SCH (08:07)
[2021-03-30] MEDS: DABIGATRAN 75 MG CAP PO SCH ×2 (08:07→21:08)
[2021-03-30] MEDS: ATORVASTATIN 40 MG TAB PO SCH (21:08)
[2021-03-31] MEDS: METOPROLOL TAR 50 MG TAB PO SCH ×2 (05:07→18:01)
[2021-03-31 05:17] LABS: Absolute Lymphocytes (CBC) 1.4 K/uL (0.7-4.9); Basophils % 0.3 % (0-1.3); Hematocrit 42.5 % (36.0-45.0); Lymphocytes % 12.5 % (15.3-44.8); MPV 9.3 fL (7.6-11.3); RBC Red Blood Cell Count 5.06 M/uL (3.86-4.86)
[2021-03-31 05:39] LABS: C-Reactive Protein 11.3 mg/L (<3.00); Ferritin 953.2 ng/mL (8-388); Magnesium 2.3 mg/dL (1.8-2.4); Potassium 4.8 mmol/L (3.5-5.1)
[2021-03-31] MEDS: INSULIN -REGULAR HUMAN 50 UNIT/0.5 ML ML SQ SCH ×4 (07:30→20:36)
[2021-03-31] MEDS: LOSARTAN POTASSIUM 50 MG TABLET PO SCH (08:13)
[2021-03-31] MEDS: predniSONE 10 MG TAB PO SCH ×2 (08:13→20:35)
[2021-03-31] MEDS: ASPIRIN EC 81 MG TAB PO SCH (08:13)
[2021-03-31] MEDS: FOLIC ACID 1 MG TABLET PO SCH (08:13)
[2021-03-31] MEDS: THIAMINE HCL 100 MG TABLET PO SCH (08:14)
[2021-03-31] MEDS: DABIGATRAN 75 MG CAP PO SCH ×2 (08:21→20:36)
[2021-03-31] MEDS: INSULIN GLARGINE 100 UNITS/ML SQ SCH ×2 (09:00→20:36)
--- NOTE | 2021-03-31 10:08 | P.PN ---
Subjective Date of Service: 03/30/21 Patient is clinically doing well. Patient is stable for discharge whenever placement is arranged. On room air oxygen. Cardiac status is stable and further workup as an outpatient. Blood sugars are stable. Anticipate discharge over the next 48 hr Review of Systems 10-point ROS is otherwise unremarkable Physical Examination - Vital Signs Temperature: 97.3 F Blood Pressure: 145/77 Pulse: 60 Respirations: 16 Pulse Ox (%): 95 - Physical Exam General: Alert, In no apparent distress HEENT: Atraumatic, PERRLA, EOMI Neck: Supple, JVD not distended Respiratory: Clear to auscultation bilaterally, Normal air movement Cardiovascular: Regular rate/rhythm, Normal S1 S2 Gastrointestinal: Normal bowel sounds, No tenderness Musculoskeletal: No tenderness Integumentary: No rashes Neurological: Normal speech, Normal tone, Normal affect Lymphatics: No axilla or inguinal lymphadenopathy - Studies Medications List Reviewed: Yes Assessment & Plan - Problems (Diagnosis) (1) Pneumonia due to COVID-19 virus Current Visit: Yes Status: Acute (2) Altered mental status Current Visit: No Status: Acute Qualifiers: Altered mental status type: disorientation Qualified Code(s): R41.0 - Disor ientation, unspecified (3) Atrial fibrillation with rapid ventricular response Current Visit: No Status: Acute (4) Hyperglycemia Current Visit: No Status: Acute (5) Hypertension Current Visit: No Status: Chronic Qualifiers: Hypertension type: essential hypertension Qualified Code(s): I10 - Essential (primary) hypertension (6) History of TIA (transient ischemic attack) Current Visit: No Status: Resolved - Plan Plan: 1. Tapering dose of steroid 2. Cardiac meds 3. Anti coagulation 4. Physical therapy 5. Placement 6. Discharge once arrangements are completed 7. GI and DVT prophylaxis - Advance Directives Does patient have a Living Will: No Does patient have a Durable POA for Healthcare: No - Code Status/Comfort Care Code Status: Do Not Attempt Resuscitat
--- NOTE | 2021-03-31 10:09 | P.PN ---
Date of Service: 03/31/21 Subjective No new changes. Patient clinically doing well. Review of Systems 10-point ROS is otherwise unremarkable Physical Examination - Vital Signs reviewed - Physical Exam General: Alert, In no apparent distress Respiratory: Clear to auscultation bilaterally, Normal air movement Cardiovascular: Regular rate/rhythm, Normal S1 S2 Gastrointestinal: Normal bowel sounds, No tenderness Neurological: Normal speech, Normal tone, Normal affect Assessment & Plan - Problems (Diagnosis) (1) Pneumonia due to COVID-19 virus Current Visit: Yes Status: Acute (2) Altered mental status Current Visit: No Status: Acute Qualifiers: Altered mental status type: disorientation Qualified Code(s): R41.0 - Disorientation, unspecified (3) Atrial fibrillation with rapid ventricular response/Cardiomyopathy with ejection fraction of 27% Current Visit: No Status: Acute (4) Hyperglycemia Current Visit: No Status: Acute (5) Hypertension Current Visit: No Status: Chronic Qualifiers: Hypertension type: essential hypertension Qualified Code(s): I10 - Essential (primary) hypertension (6) History of TIA (transient ischemic attack) Current Visit: No Status: Resolved - Plan Continue plan of care as mentioned below: 1. Tapering dose of steroid 2. Cardiac meds; continue with cardiac meds including beta-ciara therapy, losartan, statin therapy, Lasix 3. Anti coagulation 4. Physical therapy 5. Placement 6. Discharge once arrangements are completed 7. GI and DVT prophylaxis - Advance Directives Does patient have a Living Will: No Does patient have a Durable POA for Healthcare: No - Code Status/Comfort Care Code Status: Do Not Attempt Resuscitat
[2021-03-31] MEDS: HYDRALAZINE HCL 20 MG/ML VIAL IV PRN (17:06)
[2021-03-31] MEDS: ATORVASTATIN 40 MG TAB PO SCH (20:36)
[2021-04-01 00:28] VITALS: O2SAT 97
[2021-04-01 04:15] LABS: Absolute Lymphocytes (CBC) 1.4 K/uL (0.7-4.9); Basophils % 0.3 % (0-1.3); Hematocrit 45.3 % (36.0-45.0); Lymphocytes % 9.7 % (15.3-44.8); MPV 9.3 fL (7.6-11.3); RBC Red Blood Cell Count 5.33 M/uL (3.86-4.86)
[2021-04-01 05:26] LABS: C-Reactive Protein 9.82 mg/L (<3.00); Ferritin 1077.5 ng/mL (8-388); Magnesium 2.6 mg/dL (1.8-2.4); Potassium 4.6 mmol/L (3.5-5.1)
[2021-04-01] MEDS: HYDRALAZINE HCL 20 MG/ML VIAL IV PRN (05:35)
[2021-04-01] MEDS: METOPROLOL TAR 50 MG TAB PO SCH ×2 (06:12→17:11)
[2021-04-01] MEDS: INSULIN -REGULAR HUMAN 50 UNIT/0.5 ML ML SQ SCH ×4 (07:30→22:15)
[2021-04-01] MEDS: FOLIC ACID 1 MG TABLET PO SCH (08:25)
[2021-04-01] MEDS: ENSURE ENLIVE 237 ML CAN PO SCH ×2 (08:25→21:00)
[2021-04-01] MEDS: ASPIRIN EC 81 MG TAB PO SCH (08:25)
[2021-04-01] MEDS: predniSONE 10 MG TAB PO SCH ×2 (08:25→22:14)
[2021-04-01] MEDS: LOSARTAN POTASSIUM 50 MG TABLET PO SCH (08:25)
[2021-04-01] MEDS: THIAMINE HCL 100 MG TABLET PO SCH (08:25)
[2021-04-01] MEDS: INSULIN GLARGINE 100 UNITS/ML SQ SCH ×2 (08:26→22:14)
[2021-04-01] MEDS: DABIGATRAN 75 MG CAP PO SCH ×2 (08:26→22:16)
[2021-04-01] MEDS ORDERED: HYDROCORTISONE ACETATE 25MG SUPP PR PRN (12:14)
[2021-04-01] MEDS ORDERED: HYDROCORTISONE SUC 100 MG INJ IV ONE (12:28)
[2021-04-01] MEDS: FLUCONAZOLE 100 MG TAB PO SCH (15:21)
[2021-04-01] MEDS: ATORVASTATIN 40 MG TAB PO SCH (22:15)
[2021-04-02] MEDS: METOPROLOL TAR 50 MG TAB PO SCH (06:26)
[2021-04-02] MEDS: INSULIN -REGULAR HUMAN 50 UNIT/0.5 ML ML SQ SCH ×3 (07:30→16:30)
[2021-04-02] MEDS: ENSURE ENLIVE 237 ML CAN PO SCH (09:00)
[2021-04-02] MEDS: ASPIRIN EC 81 MG TAB PO SCH (09:04)
[2021-04-02] MEDS: predniSONE 10 MG TAB PO SCH (09:04)
[2021-04-02] MEDS: LOSARTAN POTASSIUM 50 MG TABLET PO SCH (09:04)
[2021-04-02] MEDS: FOLIC ACID 1 MG TABLET PO SCH (09:04)
[2021-04-02] MEDS: FLUCONAZOLE 100 MG TAB PO SCH (09:04)
[2021-04-02] MEDS: THIAMINE HCL 100 MG TABLET PO SCH (09:05)
[2021-04-02] MEDS: INSULIN GLARGINE 100 UNITS/ML SQ SCH (09:05)
[2021-04-02] MEDS: DABIGATRAN 75 MG CAP PO SCH (09:05)
--- NOTE | 2021-04-02 10:12 | P.PN ---
Date of Service: 04/01/21 Subjective Patient doing well with no new complaints. Clinical conditions are improving. Review of Systems 10-point ROS is otherwise unremarkable Physical Examination - Vital Signs reviewed - Physical Exam General: Alert, In no apparent distress Respiratory: Clear to auscultation bilaterally, Normal air movement Cardiovascular: Regular rate/rhythm, Normal S1 S2 Gastrointestinal: Normal bowel sounds, No tenderness Neurological: Normal speech, Normal tone, Normal affect Assessment & Plan - Problems (Diagnosis) (1) Pneumonia due to COVID-19 virus Current Visit: Yes Status: Acute (2) Altered mental status Current Visit: No Status: Acute Qualifiers: Altered mental status type: disorientation Qualified Code(s): R41.0 - Disorientation, unspecified (3) Atrial fibrillation with rapid ventricular response Current Visit: No Status: Acute (4) Hyperglycemia Current Visit: No Status: Acute (5) Hypertension Current Visit: No Status: Chronic Qualifiers: Hypertension type: essential hypertension Qualified Code(s): I10 - Essential (primary) hypertension (6) History of TIA (transient ischemic attack) Current Visit: No Status: Resolved - Plan Continue plan of care as mentioned below: 1. Tapering dose of steroid 2. Continue with Cardiac meds 3. continue with Anti coagulation 4. Physical therapy appreciated 5. Placement pending to [facility] 6. Discharge once arrangements are completed 7. GI and DVT prophylaxis - Advance Directives Does patient have a Living Will: No Does patient have a Durable POA for Healthcare: No - Code Status/Comfort Care Code Status: Do Not Attempt Resuscitat
[2021-04-02] MEDS ORDERED: FUROSEMIDE 40 MG/4 ML VIAL IV ONE (10:22)
[2021-04-02 17:11] VITALS: BP 152/82; TEMP 98.2
--- NOTE | 2021-04-06 02:14 | P.DS ---
Discharge Date: 04/02/21 Primary Care Provider: None Disposition: ROUTINE DISCHARGE Discharge Condition: GOOD Reason for Admission: AMS, NSTEMI - Problems (1) Pneumonia due to COVID-19 virus Status: Acute (2) Altered mental status Status: Acute Qualifiers: Altered mental status type: disorientation Qualified Code(s): R41.0 - Disorientation, unspecified (3) Atrial fibrillation with rapid ventricular response Status: Acute (4) Hyperglycemia Status: Acute (5) Hypertension Status: Chronic Qualifiers: Hypertension type: essential hypertension Qualified Code(s): I10 - Essential (primary) hypertension (6) History of TIA (transient ischemic attack) Status: Resolved Brief History of Present Illness: 81-year-old female with history of atrial fibrillation, hypertension, TIA presents emergency department for altered mental status. Daughter reports that Tuesday evening patient had an episode of altered mental status, hypertension and EMS was called, patient was transported via [facility] to [facility] for evaluation. Patient had CT of her head which was reported to have been negative per the daughter, also reportedly had elevated troponin level although the level is not available for review at this time and the daughter is unaware of how high it was. Daughter reports patient was unable to receive MRI as she has a pacemaker, did not receive any further cardiac evaluation to her knowledge while patient was at [facility], patient was discharged yesterday evening, daughter reports at discharge patient was more cognizant, coherent and able to have a discussion with her at that time. Patient lives at home with her , this morning around 0700 he noticed that she was having difficulty communicating again, seem to be having difficulty with her speech this progress throughout the day, this evening he called EMS to transport her to the hospital for further evaluation. Patient was evaluated in the emergency department labs were significant for white blood cell count 12 troponin 0.7 BNP 4849 urinalysis with 1+ blood 2+ total protein negative for UTI patient tested positive for Covid, daughter reports patient first tested positive for Covid during her previous hospitalization. CT head w ithout contrast negative for acute findings but did demonstrate remote left frontal lobe infarct and chronic small vessel ischemic changes, chest x-ray was unremarkable. When I saw the patient in the emergency department she was awake, alert, oriented x2 to name and date, unsure where she was or why she was there. Patient was not able to fully follow commands for detailed neurological exam, concrete curer strengths are equal bilaterally but mental status limited rest of exam. Hospital Course: Patient is clinically doing well. Patient was worked up for non STEMI. Patient workup was unremarkable. At this time, patient is clinically doing well. Patient does have some cardiomyopathy and will be treated with cardiac meds. Otherwise, patient is clinically much better. Patient is stable for transfer to residential. Vital Signs/Physical Exam: Temp Pulse Resp BP Pulse Ox 98.2 F 70 28 H 152/82 H 96 04/02/21 16:00 04/02/21 16:00 04/02/21 16:00 04/02/21 16:00 04/02/21 16:00 General: Alert, In no apparent distress, Demented Respiratory: Clear to auscultation bilaterally Cardiovascular: Regular rate/rhythm Laboratory Data at Discharge: WBC 13.90 K/uL (4.3-10.9) H D 04/01/21 03:49 Hgb 14.9 g/dL (12.0-15.0) 04/01/21 03:49 Hct 45.3 % (36.0-45.0) H 04/01/21 03:49 Plt Count 255 K/uL (152-406) D 04/01/21 03:49 PT 14.2 SECONDS (9.5-12.5) H 03/24/21 20:03 INR 1.23 03/24/21 20:03 Sodium 142 mmol/L (136-145) 04/01/21 03:54 Potassium 4.6 mmol/L (3.5-5.1) 04/01/21 03:54 BUN 32 mg/dL (7-18) H 04/01/21 03:54 Creatinine 0.82 mg/dL (0.55-1.3) 04/01/21 03:54 Glucose 50 mg/dL (74-106) L 04/01/21 03:54 Magnesium 2.6 mg/dL (1.8-2.4) H 04/01/21 03:54 Total Bilirubin 0.4 mg/dL (0.2-1.0) 03/29/21 05:48 AST 36 U/L (15-37) 03/29/21 05:48 ALT 55 U/L (12-78) 03/29/21 05:48 Alkaline Phosphatase 82 U/L (45-117) 03/29/21 05:48 Troponin I 0.41 ng/mL (0.0-0.045) H 03/25/21 05:53 Triglycerides 98 mg/dL (<150) 03/25/21 01:56 Cholesterol 106 mg/dL (<200) 03/25/21 01:56 HDL Cholesterol 41 mg/dL (40-60) 03/25/21 01:56 Cholesterol/HDL Ratio 2.59 03/25/21 01:56 Home Medications: Atropine 1% Opth Michelle [Atropine 1% Opth Michelle*] 1 gtt LEFT EYE QIDP PRN 09/04/20 Metoprolol Tartrate [Lopressor] 100 mg PO BID 09/04/20 Prednisol Acet 1% Opth [Pred Forte 1%*] 1 gtt LEFT EYE Q2HP PRN 09/04/20 Dabigatran Etexilate Mesylate [Pradaxa*] 75 mg PO BID #60 cap 09/05/20 Atorvastatin Calcium [Lipitor] 20 mg PO BEDTIME #30 tab 04/02/21 Ensure Enlive 237 ml PO BID #60 can 04/02/21 Fluconazole [Diflucan] 100 mg PO DAILY #7 tablet 04/02/21 Furosemide [Lasix] 40 mg PO BIDL #60 tab 04/02/21 Hydrocort Acetate Suppos [Anucort-Hc Suppository*] 25 mg [place] BID PRN #30 supp 04/02/21 Insulin Glargine Human [Lantus*] 15 units SQ BID #2 vial 04/02/21 Losartan Potassium [Cozaar*] 50 mg PO DAILY #30 tablet 04/02/21 Potassium Chloride [K-Dur] 20 meq PO DAILY #30 tab.er.prt 04/02/21 predniSONE [Deltasone*] 10 mg PO BID #14 tab 04/02/21 New Medications: Hydrocort Acetate Suppos [Anucort-Hc Suppository*] 25 mg [place] BID PRN #30 supp PRN Reason: Hemorrhoids Losartan Potassium [Cozaar*] 50 mg PO DAILY #30 tablet predniSONE [Deltasone*] 10 mg PO BID #14 tab Fluconazole [Diflucan] 100 mg PO DAILY #7 tablet Ensure Enlive 237 ml PO BID #60 can Potassium Chloride [K-Dur] 20 meq PO DAILY #30 tab.er.prt Insulin Glargine Human [Lantus*] 15 units SQ BID #2 vial Furosemide [Lasix] 40 mg PO BIDL #60 tab Atorvastatin Calcium [Lipitor] 20 mg PO BEDTIME #30 tab Physician Discharge Instructions: OK TO DC IV AND Dc to residential FOLLOW-UP WITH PRIMARY CARE PROVIDER IN 1-2 WEEKS FOLLOW-UP WITH CARDIOLOGY IN 1-2 WEEKS RETURN TO THE ER IF symptoms worsen CALL or TEXT DR. HURTADO AT [phone] IF ANY QUESTIONS REGARDING HOSPITAL STAY. PLEASE CALL THE FLOOR AT [phone] IF ANY MEDICATION OR NURSING QUESTIONS. Diet: AHA (1800 kilocalorie ADA diet) Activity: Fall precautions Followup: Loy Tadeo MD [ACTIVE - CAN ADMIT] - 1-2 Weeks (Call to schedule an appointment ) Unknown,U [Primary Care Provider] - Time spent managing pt's care (in minutes): 35
== END 2021-04-02 17:45 | DRG 177 ==
LOC: ER 18:34 → ERHOLD 22:13 → 4TH 03-27 21:01
PROVIDERS: ADMIT Family Medicine; ATTEND Family Medicine
DX: U07.1 COVID-19 (principal); J12.82 Pneumonia due to coronavirus disease 2019; I50.23 Acute on chronic systolic (congestive) heart failure; I24.8 Other forms of acute ischemic heart disease; I48.20 Chronic atrial fibrillation, unspecified; G93.40 Encephalopathy, unspecified; I13.0 Hypertensive heart and chronic kidney disease with heart failure and stage 1 through stage 4 chronic kidney disease, or unspecified chronic kidney disease; N18.4 Chronic kidney disease, stage 4 (severe); R47.01 Aphasia; I16.9 Hypertensive crisis, unspecified; E11.22 Type 2 diabetes mellitus with diabetic chronic kidney disease; E11.65 Type 2 diabetes mellitus with hyperglycemia; I77.9 Disorder of arteries and arterioles, unspecified; Z86.73 Personal history of transient ischemic attack (TIA), and cerebral infarction without residual deficits; Z95.0 Presence of cardiac pacemaker; Z66 Do not resuscitate
CPT/HCPCS: 36415; 51702; 70450; 71045; 74230; 80048; 80053; 80061; 80076; 81003; 82728; 82947; 83036; 83735; 83880; 84439; 84443; 84484; 85025; 85610; 86140; 92610; 92611; 93306; 93880; 95819; 97110; 97112; 97161; 97530; 99285; J0360; J1160; J1650; J1720; J1815; J1940; J2920; J3411; J3480; J7042; J7512; U0003